=== PATIENT | male | born 1985 | race Caucasian/White ===

== ENCOUNTER 2020-11-09 18:42 | Emergency (ER) | payer MEDICAID, SELFPAY ==
--- NOTE | 2020-11-09 18:47 | ED.EXTPRO ---
HPI - Extremity Problem General Chief complaint: Extremity Injury, Lower Stated complaint: L leg swelling Source: patient and RN notes reviewed Mode of arrival: ambulatory Limitations: no limitations History of Present Illness Complaint: extremity swelling (and redness) Onset (ago): hour(s) (12) Pain Consistency: constant Location: left and lower extremity Severity scale (1-10): 3 Quality: aching and dull Radiation: none Relieving factors: nothing Exacerbating factors: weight bearing and walking Associated symptoms: denies other symptoms Related Data Home Medications Medication Instructions Recorded Confirmed duloxetine [Cymbalta] 30 mg PO DAILY 11/09/20 11/09/20 mirtazapine [Remeron] 30 mg PO DAILY 11/09/20 11/09/20 Allergies Allergy/AdvReac Type Severity Reaction Status Date / Time ketorolac [Toradol] Allergy Intermediate Unknown Verified 11/09/20 18:58 codeine [Tylenol-Codeine #3] AdvReac Mild Nausea Verified 11/09/20 19:08 Review of Systems Review of Systems: All systems reviewed & are unremarkable except as noted in HPI and below Constitutional: Constitutional: Denies chills and Denies fever(s) Cardiovascular: Cardiovascular: Denies chest pain Respiratory: Respiratory: Denies dyspnea Gastrointestinal: Gastrointestinal: Denies diarrhea, Reports nausea and Denies vomiting PMFSH Past Medical History Medical History (Updated 11/09/20 @ 19:44 by Angel Beck MD) Depression Surgical History Surgical History (Updated 11/09/20 @ 18:53 by Angel Beck MD) No pertinent past surgical history Social History Social History (Updated 11/09/20 @ 18:54 by Angel Beck MD) Smoking status: Current every day smoker Alcohol intake: never Substance use: never Exam Const: General: healthy appearing and no acute distress Nutritional Appearance: well nourished and thin Orientation/consciousness: patient oriented x3 HENMT: Head: normal to inspection Ears: external ears normal Eyes: Conjunctivae: conjunctivae normal Pupils: Equal, round and reactive pupils present EOM: EOMs intact bilaterally Neck: Neck: normal visual inspection Resp: Effort & Inspection: normal respiratory effort Auscultation: clear to auscultation bilaterally Cardio: Rate: regular rate Rhythm: regular rhythm GI: GI Palp: Yes Soft to palpation, No Tenderness to palpation present (GI), No Guarding due to palpation present (GI) and No Rebound tenderness present Auscultation: normal bowel sounds Back/Spine/Pelvis: Cervical Spine: cervical ROM normal Thoracic/Lumbar Spine: thoraco-lumbar ROM normal Skin: General skin exam: normal color and erythema (with tenderness and warmth LLE below the knee) Trauma: abrasion (Left lower leg superficial) Neuro: General: patient oriented x3, moves all extremities, no meningeal signs and no focal motor deficits Speech: normal speech Gait exam (Neuro): Normal gait present Extrem: General: normal to inspection and no clubbing, cyanosis or edema Psych: Appearance: grossly normal and well kempt Mental Status: mental status grossly normal Affect: normal affect Attitude: cooperative Thought content: Yes Normal thought content present MDM - Extremity (Nontraumatic) Lab Data Attestation: I reviewed the patient's lab results. Discharge Plan Discharge Clinical Impression: Cellulitis Qualifiers: Site of cellulitis: extremity Site of cellulitis of extremity: lower extremity Laterality: left Qualified Code(s): L03.116 - Cellulitis of left lower limb Patient Disposition: Home, Self-Care Condition: Stable Instructions: Antibiotic Form, Cellulitis (ED) Additional Instructions: follow-up with your primary care physician in 4 to 5 days to recheck improvement in infection. Prescriptions: New clindamycin HCl 300 mg capsule 300 mg PO Q8H 10 Days Qty: 30 RF: 0 No Action mirtazapine [Remeron] 30 mg Tablet 30 mg PO DAILY RF: 0 duloxetine [Cymbalta] 30 mg Ca
[2020-11-09 18:50] VITALS: BP 124/90; PULSE 98; RESP 16; TEMP 37.1; O2SAT 99
[2020-11-09] MEDS: ACETAMINOPHEN 500 MG TABLET 1000 MG PO (19:10)
[2020-11-09 19:21] LABS: Basophils Absolute Auto 0.03 K/mm3 (0.00-0.10); Basophils Percent Auto 0.4 % (0.0-1.0); Eosinophils Absolute Auto 0.09 K/mm3 (0.02-0.50); Eosinophils Percent Auto 1.2 % (1.0-6.0); Hemoglobin 13.3 g/dL (14.0-18.0); Immature Granulocyte Absolute 0.03 K/mm3 (0.00-0.00); Immature Granulocyte Percent A 0.4 % (0.0-0.0); Lymphocytes Absolute Auto 1.16 K/mm3 (1.10-4.50); Lymphocytes Percent Auto 15.1 % (18.0-42.0); Mean Corpuscular HGB Conc 35.9 g/dL (32.0-36.0); Mean Corpuscular Hemoglobin 31.4 pg (27.0-31.0); Mean Corpuscular Volume 87.3 fL (78.0-102.0); Monocytes Absolute Auto 0.79 K/mm3 (0.10-0.90); Monocytes Percent Auto 10.3 % (2.0-11.0); Neutrophils Absolute Auto 5.6 K/mm3 (1.7-7.2); Neutrophils Percent Auto 72.6 % (50.0-70.0); Platelet Count Result 343 K/mm3 (150-420); Red Blood Count 4.24 M/mm3 (4.70-6.10); Red Cell Distribution Width 12.5 % (11.6-14.4); White Blood Count 7.7 K/mm3 (4.8-10.8)
[2020-11-09 19:30] LABS: CRP 9.9 mg/dL (0.0-0.9)
[2020-11-09 19:30] LABS: Anion Gap 14 mmol/L (8-16); Blood Urea Nitrogen 22 mg/dL (7-18); Calcium 9.1 mg/dL (8.5-10.1); Carbon Dioxide 27 mmol/L (21-32); Chloride 99 mmol/L (98-108); Estimated CRCL calculation 86 ml/min; Estimated Glomerular Filt Rate > 60; Glucose 110 mg/dL (70-99); Osmolality Calculated 294 mOsm/kg (285-295); Potassium 3.1 mmol/L (3.5-5.1); Sodium 140 mmol/L (136-145)
[2020-11-09] MEDS: CLINDAMYCIN HCL 150 MG CAP 300 MG PO (19:49)
[2020-11-09 19:50] VITALS: RESP 16; O2SAT 99
== END 2020-11-09 19:52 | disposition home or self-care (01) ==
PROVIDERS: Emergency Provider Emergency Medicine
DX: L03.116 Cellulitis of left lower limb (principal)
CPT/HCPCS: 36415; 80048; 83605; 85025; 86140; 87040; 99283; A9270

== ENCOUNTER 2022-06-14 15:00 | Emergency (ER) | payer OTHER, SELFPAY ==
--- NOTE | ~2022-06-14 | XR_ITS ---
EXAM: XR ankle RT min 3V, XR foot LT min 3V, XR foot RT min 3V, XR ankle LT min 3V DATE: 06/14/2022 15:53 (accession [id number]), 06/14/2022 15:54 (accession [id number]), 06/14 15:54 (accession [id number]), 06/14/2022 15:54 (accession [id number]) HISTORY: GENERALIZED PAIN THROUGHOUT X 2 DAYS NO INJURY . COMPARISON: None available. FINDINGS: Normal mineralization. No fracture or dislocation. No lytic or blastic lesion. Mild scatte red degenerative changes. No erosion or periosteal change. Soft tissues within normal limits. IMPRESSION: No acute osseous finding in the bilateral ankles or feet. Reviewed, dictated and finalized at [facility] [employer]. 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 IMPRESSION: No acute osseous finding in the bilateral ankles or feet. IMPRESSION: No acute osseous finding in the bilateral ankles or feet.
[2022-06-14 15:00] VITALS: BP 141/99; PULSE 113; RESP 18; TEMP 36.9; O2SAT 100
--- NOTE | 2022-06-14 15:20 | ED.GENADULT ---
HPI - General Adult General Chief complaint: Extremity Injury, Lower Stated complaint: pain in feet Time Seen by Provider: 06/14/22 15:17 Source: patient Mode of arrival: ambulatory Limitations: no limitations History of Present Illness HPI narrative: 36-year-old white male complains of pain in his feet and legs gradually worse over the last week. Says is worse when he is walking. He has taken some Tylenol yesterday it did help he is taking gabapentin it did not help. He saw his psychiatrist 4 days ago but did mention is pain in his feet. He was admitted to the hospital for suicidal thoughts a week or 2 ago. He is placed on gabapentin he does not know why. This was discontinued by his doctor. never had this problem before he has a history of anxiety and depression. Related Data Home Medications Medication Instructions Recorded Confirmed citalopram 40 mg tablet 40 mg PO DAILY 06/14/22 06/14/22 clonazepam 1 mg tablet 1 mg PO BID 06/14/22 06/14/22 duloxetine 30 mg capsule,delayed 120 mg PO DAILY 06/14/22 06/14/22 release mirtazapine 30 mg tablet (Remeron) 15 mg PO QHS 06/14/22 06/14/22 olanzapine 10 mg tablet (Zyprexa) 20 mg PO HS 06/14/22 06/14/22 propranolol 20 mg tablet 60 mg PO DAILY 06/14/22 06/14/22 Allergies Allergy/AdvReac Type Severity Reaction Status Date / Time ketorolac [Toradol] Allergy Intermediate Unknown Verified 06/14/22 15:09 codeine [Tylenol-Codeine #3] AdvReac Mild Nausea Verified 06/14/22 15:09 Review of Systems Constitutional: Constitutional: Denies chills, Denies fatigue, Denies fever(s) and Denies weakness Eyes: Eyes: Reports no additional eye complaints ENT: Reports system reviewed and no additional complaints, except as documented Cardiovascular: Cardiovascular: Reports no additional cardiovascular complaints Respiratory: Respiratory: Reports no additional respiratory complaints Gastrointestinal: Gastrointestinal: Reports no additional gastrointestinal complaints Genitourinary: Genitourinary: Reports no additional male genitourinary complaints Musculoskeletal: Musculoskeletal: Reports as per HPI, Denies back pain, Denies myalgias, Reports arthralgias, Denies joint swelling and Denies muscle cramps Integumentary/Breasts: Skin/Breast: Denies pruritus and Denies erythema Neurologic: Reports system reviewed and no additional complaints, except as documented, Denies confusion, Denies dizziness, Denies syncope, Denies numbness and Denies weakness Psychiatric: Psychiatric: Reports no additional psychiatric complaints [facility] Past Medical History Medical History Depression Surgical History Surgical History No pertinent past surgical history Social History Social History Smoking packs per day: 0.5 Smoking cigarettes per day: 10.0 Smoking status: Current every day smoker Alcohol intake: never Substance use: never Exam Narrative: White male does not appear in any distress head is normocephalic atraumatic. Eyes conjunctiva pink sclera nonicteric oropharynx is clear with moist mucous membranes neck is supple nontender back is nontender. Lungs are clear heart is regular rate rhythm without murmurs gallops or rubs. Abdomen is soft nontender no hepatosplenomegaly or masses no CVA tenderness. Extremities no signs clubbing or edema. His neurological motor and sensory are normal lower extremities DP and PT +2 equal bilateral. He has got scaly fungal infection on his feet other than this there is no abnormalities. He has no swelling. He has full range of motion is toes and ankles. Mild diffuse tenderness. Normal above the ankles. Affect is normal. Course Vital Signs Vital signs: Vital Signs Temperature 36.9 C 06/14/22 15:00 Pulse Rate 113 H 06/14/22 15:00 Respiratory Rate 18 06/14/22 15:00 Blood Press
[2022-06-14 16:04] LABS: Hematocrit 43.7 % (40.0-54.0); Hemoglobin 14.6 g/dL (14.0-18.0); Mean Corpuscular HGB Conc 33.4 g/dL (32.0-36.0); Mean Corpuscular Hemoglobin 30.7 pg (27.0-31.0); Mean Corpuscular Volume 91.8 fL (78.0-102.0); Mean Platelet Volume 8.9 fl (8.7-11.0); Platelet Count Result 345 K/mm3 (150-420); Red Blood Count 4.76 M/mm3 (4.70-6.10); Red Cell Distribution Width 13.3 % (11.6-14.4); White Blood Count 11.2 K/mm3 (4.8-10.8)
[2022-06-14] MEDS: ACETAMINOPHEN 500 MG TABLET 1000 MG PO (16:04)
[2022-06-14 16:08] LABS: Alanine Aminotransferase 151 U/L (16-63); Albumin Level 3.6 g/dL (3.4-5.0); Alkaline Phosphatase 98 U/L (46-116); Anion Gap 7 mmol/L (8-16); Aspartate Amino Transferase 51 U/L (15-37); Bilirubin,Total 0.2 mg/dL (0.00-1.00); Blood Urea Nitrogen 15 mg/dL (7-18); Carbon Dioxide 30 mmol/L (21-32); Chloride 101 mmol/L (98-108); Creatine Kinase 47 U/L (39-308); Estimated CRCL calculation 107 ml/min; Estimated Glomerular Filt Rate > 60; Glucose 96 mg/dL (70-99); Osmolality Calculated 286 mOsm/kg (285-295); Potassium 3.8 mmol/L (3.5-5.1); Sodium 138 mmol/L (136-145); Total Protein 7.5 g/dL (6.4-8.2)
--- NOTE | 2022-06-14 16:11 | PC.NURSE ---
pt is lying on stretcher awaiting results at this time. nad noted. medication administered as requested. will continue to monitor.
[2022-06-14 16:13] LABS: CRP < 0.5 mg/dL (0.0-0.9)
[2022-06-14 16:15] LABS: D Dimer 0.19 mg/L (0.19-0.50)
[2022-06-14 17:02] LABS: Erythrocyte Sedimentation Rate 13 mm/hr (0-15)
[2022-06-14 17:22] VITALS: BP 124/73; PULSE 83; RESP 16; O2SAT 97
== END 2022-06-14 17:20 | disposition home or self-care (01) ==
PROVIDERS: Emergency Provider Emergency Medicine; PCP Family Medicine
DX: G62.9 Polyneuropathy, unspecified (principal); B35.3 Tinea pedis; F32.A Depression, unspecified; F17.210 Nicotine dependence, cigarettes, uncomplicated
CPT/HCPCS: 36415; 73610; 73630; 80053; 82550; 85027; 85380; 85652; 86140; 99284

== ENCOUNTER 2022-12-01 14:07 | Outpatient (CLI) | payer OTHER, SELFPAY ==
[2022-12-01 14:36] LABS: Basophils Absolute Auto 0.08 K/mm3 (0.00-0.10); Basophils Percent Auto 0.8 % (0.0-1.0); Eosinophils Absolute Auto 0.07 K/mm3 (0.02-0.50); Eosinophils Percent Auto 0.7 % (1.0-6.0); Hematocrit 46.2 % (40.0-54.0); Hemoglobin 15.5 g/dL (14.0-18.0); Immature Granulocyte Absolute 0.05 K/mm3 (0.00-0.00); Immature Granulocyte Percent A 0.5 % (0.0-0.0); Lymphocytes Absolute Auto 2.45 K/mm3 (1.10-4.50); Lymphocytes Percent Auto 25.6 % (18.0-42.0); Mean Corpuscular HGB Conc 33.5 g/dL (32.0-36.0); Mean Corpuscular Hemoglobin 30.2 pg (27.0-31.0); Mean Corpuscular Volume 90.1 fL (78.0-102.0); Mean Platelet Volume 8.6 fl (8.7-11.0); Monocytes Percent Auto 6.3 % (2.0-11.0); Neutrophils Absolute Auto 6.3 K/mm3 (1.7-7.2); Neutrophils Percent Auto 66.1 % (50.0-70.0); Platelet Count Result 321 K/mm3 (150-420); Red Blood Count 5.13 M/mm3 (4.70-6.10); Red Cell Distribution Width 13.1 % (11.6-14.4); White Blood Count 9.6 K/mm3 (4.8-10.8)
[2022-12-01 14:45] LABS: Hemoglobin A1C 4.9 % (<5.7)
[2022-12-01 15:22] LABS: Alanine Aminotransferase 18 U/L (16-63); Albumin Level 4.1 g/dL (3.4-5.0); Alkaline Phosphatase 78 U/L (46-116); Anion Gap 10 mmol/L (8-16); Aspartate Amino Transferase 14 U/L (15-37); Bilirubin,Total 0.3 mg/dL (0.00-1.00); Blood Urea Nitrogen 18 mg/dL (7-18); Calcium 9.6 mg/dL (8.5-10.1); Carbon Dioxide 30 mmol/L (21-32); Chloride 100 mmol/L (98-108); Cholesterol 192 mg/dL (0-200); Estimated Glomerular Filt Rate > 60; Glucose 87 mg/dL (70-99); HDL Direct 44 mg/dL (40-60); LDL Cholesterol Calculated 87 mg/dL (<130); Osmolality Calculated 290 mOsm/kg (285-295); Sodium 140 mmol/L (136-145); Total Protein 7.8 g/dL (6.4-8.2); Triglycerides 304 mg/dL (0-150)
== END 2022-12-01 14:08 | disposition home or self-care (01) ==
DX: F33.1 Major depressive disorder, recurrent, moderate (principal); Z79.899 Other long term (current) drug therapy
CPT/HCPCS: 36415; 80053; 80061; 83036; 85025

== ENCOUNTER 2023-07-09 05:40 | Emergency (ER) | payer OTHER, SELFPAY ==
[2023-07-09] VITALS (14 sets, daily range): BP systolic 105–125; BP diastolic 72–97; PULSE 67–78; RESP 10–23; TEMP 36.4–36.8; O2SAT 99–100
--- NOTE | ~2023-07-09 | XR_ITS ---
Portable chest x-ray Comparison: 03/19/2018 Clinical History: Chest pain Findings: Lungs are clear, without focal consolidation or pleural effusion. Cardiomediastinal silho uette is stable. Bones and soft tissues are unremarkable. Impression: Normal chest. Reviewed, dictated and finalized at [facility]. Impression: Normal chest.
--- NOTE | 2023-07-09 05:44 | ECG_ITS ---
Measurements Intervals [place] Rate: 80 P: 75 TN: 122 QRS: 91 QRSD: 109 T: 73 QT: 397 QTc: 460 Interpretive Statements SINUS RHYTHM RIGHT AXIS DEVIATION INCOMPLETE RIGHT BUNDLE BRANCH BLOCK BASELINE ARTIFACT- I, II, III, AVR, AVL, V1-V2 BORDERLINE ECG NO PREVIOUS ECG AVAILABLE FOR COMPARISON Electronically Signed On 07-09-2023 6:40:24 CDT by Andrew Cade D.O.
--- NOTE | 2023-07-09 05:54 | ED.PSYCH ---
HPI - Psych General Chief Complaint: Psychiatric Symptoms <Guilherme Granados MD - Last Filed: 07/09/23 06:53> Stated Complaint: shortness of breath <Guilherme Granados MD - Last Filed: 07/09/23 06:53> Time Seen by Provider: 07/09/23 05:53 <Guilherme Granados MD - Last Filed: 07/09/23 06:53> Source: patient <Guilherme Granados MD - Last Filed: 07/09/23 06:53> Mode of arrival: ambulatory <Guilherme Granados MD - Last Filed: 07/09/23 06:53> History of Present Illness HPI Narrative: 37-year-old male smoker prior history of drug use, depression presents to the ER with acute onset -- left-sided chest pain. No radiation of the pain. No nausea / vomiting. -- Shortness of breath. The patient is saturating 100% on room. -- Depression with suicidal ideation. He wants to cut himself. Was admitted recently to a psychiatric facility in [place] depression with suicidal ideation. patient was picked up by the police. He was knocking on doors asking them to call ambulance for his suicidal ideation. -- patient is homicidal. <Guilherme Granados MD - Last Filed: 07/09/23 06:53> MD complaint: suicidal ideation and feels depressed <Guilherme Granados MD - Last Filed: 07/09/23 06:53> Onset (ago): day(s) ( One day) <Guilherme Granados MD - Last Filed: 07/09/23 06:53> Duration: constant <Guilherme Granados MD - Last Filed: 07/09/23 06:53> History of same: Yes <Guilherme Granados MD - Last Filed: 07/09/23 06:53> Relieving factors: none <Guilherme Granados MD - Last Filed: 07/09/23 06:53> Exacerbating factors: none <Guilherme Granados MD - Last Filed: 07/09/23 06:53> Context: recent alcohol abuse <Guilherme Granados MD - Last Filed: 07/09/23 06:53> Associated psychiatric symptoms: depression, suicidal ideation and homicidal ideation <Guilherme Granados MD - Last Filed: 07/09/23 06:53> Associated symptoms: denies other symptoms, shortness of breath and other ( Chest pain) <Guilherme Granados MD - Last Filed: 07/09/23 06:53> Treatments prior to arrival: none <Guilherme Granados MD - Last Filed: 07/09/23 06:53> If self harm: admits thoughts of self harm <Guilherme Granados MD - Last Filed: 07/09/23 06:53> Related Data Home Medications: Home Medications Medication Instructions Recorded Confirmed citalopram 40 mg tablet (Celexa) 40 mg PO DAILY 06/14/22 07/09/23 clonazepam 1 mg tablet (Klonopin) 1 mg PO BID 06/14/22 07/09/23 duloxetine 30 mg capsule,delayed 120 mg PO DAILY 06/14/22 07/09/23 release (Cymbalta) propranolol 20 mg tablet 60 mg PO DAILY 06/14/22 07/09/23 quetiapine 200 mg tablet mg 07/09/23 <Guilherme Granados MD - Last Filed: 07/09/23 06:53> Allergies/Adverse Reactions: Allergies Allergy/AdvReac Type Severity Reaction Status Date / Time ketorolac [Toradol] Allergy Intermediate Unknown Verified 06/14/22 15:09 erythromycin base Allergy Unknown Verified 07/09/23 07:02 codeine [Tylenol-Codeine #3] AdvReac Mild Nausea Verified 06/14/22 15:09 <Guilherme Granados MD - Last Filed: 07/09/23 06:53> Review of Systems Review of Systems: All systems reviewed & are unremarkable except as noted in HPI and below <Guilherme Granados MD - Last Filed: 07/09/23 06:53> Constitutional: Constitutional: Reports as per HPI and Reports no additional constitutional complaints <Guilherme Granados MD - Last Filed: 07/09/23 06:53> Eyes: Eyes: Reports as per HPI and Reports no additional eye complaints <Guilherme Granados MD - Last Filed: 07/09/23 06:53> ENT: Reports system reviewed and no additional complaints, except as documented and Reports as per HPI <Guilherme Granados MD - Last Filed: 07/09/23 06:53> Cardiovascular: Cardiovascular: Reports as per HPI, Reports no additional cardiovascular complaints and Reports chest pain <Guilherme Granados MD - Last Filed: 07/09/23 06:53> Respiratory: Respiratory: Reports as per
[2023-07-09 06:28] LABS: Appearance Urine Clear (Clear); Bilirubin Urine Negative (Negative); Blood Urine Negative (Negative); Color Urine Yellow (Yellow); Glucose Urine UA Negative (Negative); Ketones Urine Negative (Negative); Leukocyte Esterase Ur Negative LEU/UL (Negative); Nitrate Urine Negative (Negative); Protein Urine Trace (Negative); Specific Grav Ur >= 1.030 (1.010-1.020); Urobilinogen Urine 0.2 mg/dL (0.2-1.0)
--- NOTE | 2023-07-09 06:36 | PC.NURSE ---
phlebotomy at bedside for patient blood draw however patient refusing initially, telling phlebotomy someone already travis his blood. Patient argumentative with RN about blood being drawn from his IV in place. RN provided patient education as to why blood work is unable to be drawn from his current IV line. Eventually patient agreed to have phlebotomy draw his blood.
[2023-07-09 06:40] LABS: Basophils Absolute Auto 0.06 K/mm3 (0.00-0.10); Basophils Percent Auto 0.5 % (0.0-1.0); Eosinophils Absolute Auto 0.14 K/mm3 (0.02-0.50); Eosinophils Percent Auto 1.2 % (1.0-6.0); Hemoglobin 13.8 g/dL (14.0-18.0); Immature Granulocyte Absolute 0.03 K/mm3 (0.00-0.00); Immature Granulocyte Percent A 0.3 % (0.0-0.0); Lymphocytes Absolute Auto 1.91 K/mm3 (1.10-4.50); Lymphocytes Percent Auto 16.9 % (18.0-42.0); Mean Corpuscular HGB Conc 32.9 g/dL (32-36); Mean Corpuscular Hemoglobin 30.1 pg (27.0-31.0); Mean Corpuscular Volume 91.7 fL (78.0-102.0); Mean Platelet Volume 8.1 fl (8.7-11.0); Monocytes Absolute Auto 0.81 K/mm3 (0.10-0.90); Monocytes Percent Auto 7.2 % (2.0-11.0); Neutrophils Absolute Auto 8.37 K/mm3 (1.70-7.20); Neutrophils Percent Auto 73.9 % (50.0-70.0); Platelet Count Result 345 K/mm3 (150-420); Red Blood Count 4.58 M/mm3 (4.70-6.10); White Blood Count 11.3 K/mm3 (4.8-10.8)
--- NOTE | 2023-07-09 06:43 | PC.NURSE ---
lights dimmed for patient comfort/request. RN monitoring, safety assistant at bedside.
[2023-07-09 06:52] LABS: Add Urine Microscopic? YES; Bacteria Urine Rare /hpf; Mucus Urine Moderate /lpf; Other Sediment Urine Spermatazoa /hpf; RBC Urine None seen /hpf (0-2); WBC Urine None seen /hpf (0-3)
--- NOTE | 2023-07-09 07:06 | PC.NURSE ---
[facility] KEYANNA Mohan for continuity of care. patient awaiting results, ED staff awaiting medical clearance prior to calling [facility] for evaluation. clinical research specialist remains at bedside. patient remains on cardiac cath tech until medically cleared.
[2023-07-09 07:07] LABS: Influenza A QL RT-PCR Negative (Negative); Influenza B QL RT-PCR Negative (Negative); RSV RNA, RT-PCR Negative (Negative); SARS-CoV-2 RNA PCR Negative (Negative)
[2023-07-09 07:09] LABS: Acetaminophen < 2 ug/mL (10-30); Alanine Aminotransferase 16 U/L (16-63); Albumin Level 4.3 g/dL (3.4-5.0); Alkaline Phosphatase 80 U/L (46-116); Anion Gap 11 mmol/L (8-16); Aspartate Amino Transferase 12 U/L (15-37); Bilirubin,Total 0.5 mg/dL (0.00-1.00); Blood Urea Nitrogen 30 mg/dL (7-18); Calcium 9.5 mg/dL (8.5-10.1); Carbon Dioxide 30 mmol/L (21-32); Chloride 98 mmol/L (98-108); Estimated CRCL calculation 92 ml/min; Estimated Glomerular Filt Rate > 60; Glucose 94 mg/dL (70-99); NT Pro B Type Natriuretic Pept 16 pg/mL (0-125); Osmolality Calculated 294 mOsm/kg (285-295); Potassium 3.6 mmol/L (3.5-5.1); Sodium 139 mmol/L (136-145); Total Protein 8.2 g/dL (6.4-8.2)
[2023-07-09 07:10] LABS: Salicylate 4.3 mg/dL (2.8-20.0)
[2023-07-09 07:11] LABS: Ethanol < 3 mg/dL (0-6); Troponin I < 4.0 ng/L (0.00-60.4)
[2023-07-09 07:12] LABS: Thyroid Stimulating Hormone 2.01 uIU/mL (0.36-3.74)
[2023-07-09 07:14] LABS: Amphetamine Screen Urine Positive (Negative); Barbiturate Screen Urine Negative (Negative); Benzodiazepines Screen Urine Negative (Negative); Cannabinoid Screen Urine Positive (Negative); Cocaine Screen Urine Negative (Negative); Methadone Screen Urine Negative (Negative); Opiate Screen Urine Negative (Negative); Phencyclidine Screen Urine Negative (Negative)
[2023-07-09] MEDS: ALPRAZolam (*CRX) 0.5 MG TABLET PO (07:23)
--- NOTE | 2023-07-09 07:57 | PC.NURSE ---
0715 pt medically cleared and moved to room 5 IV D/C'D SUICIDAL PRECAUTIONS CONTINUED SITTER AT DOOR BREAKFAST ORDERED [facility] MESSAGED LEFT AND WAITING CALL BACK
== END 2023-07-09 12:13 ==
PROVIDERS: Internal Medicine Critical Care Medicine; Emergency Provider Emergency Medicine
DX: F32.A Depression, unspecified (principal); R45.850 Homicidal ideations; R45.851 Suicidal ideations; F17.210 Nicotine dependence, cigarettes, uncomplicated; Z20.822 Contact with and (suspected) exposure to COVID-19
CPT/HCPCS: 36415; 71045; 80053; 80307; 81001; 83880; 84443; 84484; 85025; 87637; 93005; 99285; A9270

== ENCOUNTER 2024-09-01 14:02 | Emergency (ER) | payer OTHER, SELFPAY ==
[2024-09-01] VITALS (35 sets, daily range): BP systolic 97–137; BP diastolic 60–104; PULSE 63–112; RESP 10–27; TEMP 36.8; O2SAT 98–100
--- NOTE | ~2024-09-01 | XR_ITS ---
EXAMINATION: XR ankle RT min 3V, XR foot RT min 3V DATE: 09/01/2024 14:37 INDICATION: Right foot and ankle pain after jumping from a shunt. TECHNIQUE: 1. Anteroposterior, mortise, additional oblique and lateral view of the right ankle were obtained. 2. Dorsoplantar, two oblique and lateral views of the right foot were obtained. COMPARISON: None. FINDINGS: There is flattening of Boehler's angle with a joint depression type calcaneal. There is mild displace ment with 5 mm separation of the plantar margin of the fracture. No other fractures identified. 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 No ank le joint effusion. Soft tissue swelling about the right foot and ankle most prominent at the dorsolat eral hindfoot. IMPRESSION: 1. Mildly displaced joint depression type fracture of the calcaneus with flattening of Boehler's angl e. Reviewed, dictated and finalized at location A. IMPRESSION: 1. Mildly displaced joint depression type fracture of the calcaneus with flatte jesus of Boehler's angle.
--- NOTE | ~2024-09-01 | XR_ITS ---
EXAMINATION: XR chest 1V portable 09/01/2024 14:37 INDICATION: Shortness of breath PROCEDURE: AP portable chest COMPARISON: 01/17/2011 FINDINGS: The lungs are clear. The cardiomediastinal silhouette is within normal limits. There are no pleural effusions. There is no pneumothorax suspected. IMPRESSION: 1: NO ACUTE CARDIOPULMONARY DISEASE. Reviewed, dictated and finalized at location A.
--- NOTE | ~2024-09-01 | CT_ITS ---
CTA chest PE protocol Ordering provider: Tarik Zelaya MD History: 38 years Male with . shortness of breath with elevated D-dimer . Comparison: None. Technique: CT angiogram chest was performed following timed intravenous injection of contrast. Thin s lice axial images and reformatted coronal images were obtained. Three dimensional reformatted images of the chest were also obtained using a [employer] workstation. . Automated exposure control and iterati ve reconstruction technique were employed. The dose-length product was 265.86 mGy-cm. 100 mL Omnipaqu e 350 was given IV. Findings: PULMONARY ARTERIES: No pulmonary embolus. VISUALIZED THORACIC INLET: Normal. MEDIASTINUM: Aorta/coronary arteries: The thoracic aorta is normal. Heart/other: The heart is not enlarged. Lymph nodes: No mediastinal or hilar adenopathy. LUNGS: No pulmonary nodules or masses. No infiltrates or effusions. No pneumothorax. Calcified granulomas ar e seen bilaterally. VISUALIZED UPPER ABDOMEN: Left adrenal adenoma measuring 2 cm. Clinical correlation and if warranted MRI is advised. Otherwise, the visualized upper abdomen is normal. MUSCULOSKELETAL: Soft tissues: The superficial soft tissues are normal. Bones: Normal spine. IMPRESSION: 1. No pulmonary embolism. 2. No acute cardiopulmonary pathology. 3. Left adrenal adenoma. Clinical correlation and if warranted dynamic CT or MRI is advised. Reviewed, dictated and finalized at location A. IMPRESSION: 1. No pulmonary embolism. 2. No acute cardiopulmonary pathology. 3. Left adrenal adenoma. Clinical correlation and if warranted dynamic CT or M RI is advised.
--- OUTSIDE RECORDS SUMMARY | 2024-09-01 14:04 | XMS_ITS | Clinical Summary ---
Author Organization [facility] Address [address] [place] [address] Care Team Providers Care Street Photographer Name Role Phone Solitario Trujillo MD Primary Care Provider [phone] Source Comments [facility],non-owned Affiliates and Associated Physician Practices is amultiple site organization consisting of ambulatory clinics and hospital sitesin [place], [place], [place] and [place]. This disclosure is being madepursuant to the Care Everywhere program and may not contain all information available regarding this patient. Last updated 18.[facility] Allergies Active Allergy Reactions Criticality Noted Date Comments Erythromycin Rash Medium 01/27/2021 Ketorolac Rash Medium 01/27/2021 Medications * This document contains information received from the source organization and may not represent a complete record from that organization. * Be aware that medications may not be up to date on this document. Alwaysverify current medications with the patient. clonazePAM (KlonoPIN) 1 MG tabletIndication s:Anxiety Take 1 (one) tablet by mouth 2 times daily Reasons: Feeling Anxious 10 tablet 4 Active nicotine (Nicoderm CQ) 14 MG/24HR patchIndications :Nicotine dependence, cigarettes, with unspecified nicotine-induced disorders APPLY 1 PATCH TO THE SKIN ONCE DAILY FOR NICOTINE ADDICTION. REMOVE OLD PATCH BEFORE APPLYING A NEW ONE. 30 patch 4 Active hydrOXYzine HCl (Atarax) 50 MG tablet TAKE ONE TABLET BY MOUTH EVERY 6 HOURS NEEDED FOR FEELING ANXIOUS 60 tablet 4 Active traZODone (Desyrel) 50 MG tablet TAKE ONE TABLET BY MOUTH NIGHTLY NEEDED FOR TROUBLE SLEEPING 30 tablet 4 Active DULoxetine (Cymbalta) 60 MG capsule TAKE ONE CAPSULE BY MOUTH ONCE DAILY FOR GENERALIZED ANXIETY & MAJOR DEPRESSIVE DISORDER 30 capsule 4 Active QUEtiapine (SEROquel) 200 MG tablet TAKE TWO TABLETS BY MOUTH AT BEDTIME FOR GENERALIZED ANXIETY & MAJOR DEPRESSIVE DISORDER 60 tablet 4 Active DULoxetine (Cymbalta) 30 MG capsule TAKE ONE CAPSULE BY MOUTH ONCE DAILY FOR GENERALIZED ANXIETY & MAJOR DEPRESSIVE DISORDER 30 capsule 4 Active OXcarbazepine (Trileptal) 600 MG tablet TAKE ONE TABLET BY MOUTH 2 TIMES A DAY FOR MOOD DISORDER 30 tablet 4 Active Active Problems Problem Noted Date Diagnosed Date 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 08/04/2023 Cluster B personality disorder 02/21/2021 Intermittent explosive disorder 02/21/2021 Tobacco use disorder 02/16/2021 Major depressive disorder, recurrent 02/16/2021 Moderate sedative, hypnotic, or anxiolytic use d isorder 02/16/2021 Medication monitoring encounter 02/15/2021 Methamphetamine use disorder, severe 01/28/2021 Cannabis use disorder, moderate, dependence 01/18 Homelessness 01/28/2021 Nonadherence to medical treatment 01/28/2021 Self-cutting of wrist 01/27/2021 Resolved Problems Problem Noted Date Diagnosed Date Resolved Date Sedative, hypnotic or anxiol ytic use disorder, severe, dependence 02/21/2021 02/21/2021 Schizophrenia 02/15/2021 02/16/2021 Severe episode of recurrent major depressive disorder, without psychotic features 01/28/202112/2020 Social History Tobacco Use Types Packs/Day Years Used Date Smoking Tobacco: Every Day Cigarettes 0.5 24.6 Started: 01/28/2000 Smokeless Tobacco: Never Tobacco Cessation:Ready to Q uit: No; Counseling Given: Yes Comments:refused tobacco cessation referral Alcohol Use Standard Drinks/Week Comments Yes 0 (1 standard drink = 0.6 oz pur e alcohol) very little-twice per month AUDIT-C Answer Date Recorded Q1: How often do you have a drink containing alc ohol? Monthly or less 08/04/2023 Q2: How many drinks containi ng alcohol do you have on a typical day when you are drinking? Patient declined 08/04/2023 Q3: How often do you have si x or more drinks on one occasion? Patient declined 08/04/2023 Overall Financial Resource Strain (CARDIA) Answe r Date Recorded How hard is it for you to pa y for the very basics like food, housing, medical care, and heating? Patient declined 08/07/2023 PHQ-2 Answer Date Recorded PHQ2 TOTAL SCORE 6 03/27/2021 [facility] [place] [facility] - Occupational Stress Questionnaire Answer Date Recorded Do you feel stress - tense, restless, nervous, or anxious, or unable to sleep at night because your mind is troubled all the time - these days? Patient declined 08/07/2023 Hunger Vital Sign Answer Date Recorded Within the past 12 months, y ou worried that your food would run out before you got the money to buy more. Patient declined Within the past 12 months, t he food you bought just didn't last and you didn't have money to get more. Patient declined PRAPARE - Transportation Answer Date Re corded In the past 12 months, has l ack of transportation kept you from medical appointments or from getting medications? Patient declined 08/07/2023 In the past 12 months, has l ack of transportation kept you from meetings, work, or from getting things needed for daily living? Patient declined 08/07/2023 Housing Stability Vital Sign Answer Lawrence e Recorded In the last 12 months, was t here a time when you were not able to pay the mortgage or rent on time? Patient declined 08/07/19 24 Number of Places Lived in the Last Year Not on f ile 08/07/2023 In the last 12 months, was t here a time when you did not have a steady place to sleep or slept in a detention (including now)? 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 Gender Identity Not on file Sexual Orientation Not on file Occupation Industry Job Start Date Job End Date unemployed Not on file Not on file Not on file Last Filed Vital Signs Vital Sign Reading Time Taken Comments Blood Pressure 116/71 08/13/2023 8:24 PM CDT Pulse 70 08/13/2023 8:24 PM CDT Temperature 36.4 C (97.5 F) 08/13/2023 8:24 PM CDT Respiratory Rate 16 08/13/2023 8:24 PM CDT Oxygen Saturation 99% 08/13/2023 8:24 PM CDT Inhaled Oxygen Concentration - - Weight 77.7 kg (171 lb 6.4 oz) 08/13/2023 11:59 AM CDT Height 185.4 cm (6' 1 ) 08/13/2023 11:59 AM CDT Body Mass Index 22.61 08/13/2023 11:59 AM CDT Plan of Treatment Health Maintenance Due Date Last Done Comments HIV SCREENING 2000 DTAP/TDAP/TD VACCINES (1 - Tdap) 2004 HEPATITIS B VACCINE (1 of 3 - 19+ 3-dose series) 2004 PNEUMOCOCCAL VACCINE (1 of 2 - PCV) 2004 COVID-19 VACCINE (2 - 2023-2 5 season) 2023 07/11/2020 DEPRESSION SCREENING 04/20/2024 INFLUENZA VACCINE (Season Ended) 2024 ZOSTER VACCINE (1 of 2) 12/22/2035 HEPATITIS C SCREENING Completed 10/05/2018 HIB VACCINE Aged Out No longer eligi ble based on patient's age to complete this topic HPV VACCINE Aged Out No longer eligi ble based on patient's age to complete this topic MENINGOCOCCAL (Group B) VACC INE SHARED DECISION-MAKING Aged Out No longer eligibl e based on patient's age to complete this topic MENINGOCOCCAL GROUPS A/C/Y/W VACCINE Aged Out No longer eligible b ased on patient's age to complete this topic Insurance [facility] Advance Directives * Full Code (Latest Code Status on File) Date Activated Date Inactivated Comments 08/04/2023 7:51 PM 08/14/2023 10:54 AM * Full Code Date Activated Date Inactivated Comments 03/28/2021 4:41 AM 04/02/2021 2:35 PM * Full Code Date Activated Date Inactivated Comments 02/15/2021 8:14 PM 02/21/2021 12:23 PM * Full Code Date Activated Date Inactivated Comments 01/27/2021 2:44 PM 02/04/2021 2:[address] Photographer Relationship Specialty Start Date End Date Solitario Trujillo MD [id number] [place] [id number] PCP - General Psychiatry 08/04/23
--- OUTSIDE RECORDS SUMMARY | 2024-09-01 14:05 | XMS_ITS ---
Author Organization Unknown Address [address] [place], [place] [phone] Phone Care Team Providers Care Hoop Rolls Operator Name Role Phone EDGAR JACINTO Attending Unavailable NO PCP Primary Unavailable Immunization Immunization Date Status Additional Notes Code Code System COVID-19, mRNA, LNP-S, PF, 1 00 mcg/0.5mL dose or 50 mcg/0.25mL dose 07/11/2020 Completed 207 CVX Results URINALYSIS w/Microscopy/C&S if indicated - Collect Date/Time: 12/17/2023 20:20 [facility] [id number] [place], [place], [phone] LOINC: 42845-7 Test Value Unit Reference Range Code Code System Flag UR SOURCE VOIDED 55145-6 LOINC COLOR DK YELLOW YELLOW 5778-6 LOINC CLARITY SL CLOUDY CLEAR 96443-2 LOINC SPEC GRAVITY 1.020 1.000-1.030 5811-5 LOINC PH 7.0 5.0 - 6.5 5803-2 LOINC LEUK EST NEGATIVE NEGATIVE 5799-2 LOINC NITRATE NEGATIVE NEGATIVE PROTEIN TRACE NEGATIVE 5804-0 LOINC GLUCOSE NEGATIVE NEGATIVE 34985-2 LOINC KETONES 1+ NEGATIVE 88644-2 LOINC A UROBILINOGEN 0.2 NEGATIVE 5818-0 LOINC BILIRUBIN 1+ NEGATIVE 40894-1 LOINC BLOOD NEGATIVE NEGATIVE 34786-5 LOINC WBC 0-2 0 - 2 61684-7 LOINC RBC 0-2 0 - 2 20655-3 LOINC EPITHELIAL OCCASIONA RARE-FEW 88198-3 LOINC BACTERIA FEW NONE SEEN 17521-8 LOINC MUCUS MANY NONE SEEN 8247-9 LOINC A YEAST NOT PRESENT NOT PRESENT 87278-2 LOINC CASTS NONE SEEN 49460-4 LOINC CRYSTALS NONE SEEN 93324-3 LOINC CULTURE? NO 8251-1 LOINC DIAGNOSIS N/A URINE DRUG SCREEN 12 PANEL R APID - Collect Date/Time: 12/17/2023 20:20 [facility] [id number] [address] [place], [place], [phone] LOINC: Test Value Unit Reference Range Code Code System Flag THC POSITIVE A PCP NEGATIVE COCAINE NEGATIVE 08009-8 LOINC METHAMPHETAMINES POSITIVE A OPIATES NEGATIVE AMPHETAMINES POSITIVE 70610-6 LOINC A BENZO POSITIVE 18965-2 LOINC A TCA NEGATIVE METHADONE NEGATIVE BARBITUATES NEGATIVE OXYCODONE NEGATIVE OD [id number] YLATE-ETOH - Collect Date/Time: 12/17/2023 18:20 [facility] [id number] [place] [address], [phone] LOINC: Test Value Unit Reference Range Code Code System Flag ACETAMINOPHEN < 10 ug/dL L=0 H=10 3298-7 LOINC SALICYLATE < 1 mg/dL L=0 H=5 4024-6 LOINC ALCOHOL < 10.00 mg/dL L=0.00 H=50.00 5643-2 LOINC TSH - Collect Date/Time: 18:20 [facility] ID: [id number] [address] [place] [address], [phone] LOINC: 19315-0 Test Value Unit Reference Range Code Code System Flag TSH. 2.710 uIU/L L=0.470 H=4.680 33559-1 LOINC CBC W/ DIFF - Collect Date/T alhaji: 12/17/2023 18:20 [facility] ID: [id number] [address] [place], [place], [phone] LOINC: 31455-8 Test Value Unit Reference Range Code Code System Flag WBC 12.1 10^3uL L=4.8 H=10.8 H RBC 4.59 10^6uL L=4.60 H=6.20 L HEMOGLOBIN 14.1 g/dL L=14.0 H=18.0 718-7 LOINC HEMATOCRIT 40.9 VOL% L=42.0 H=52.0 4544-3 LOINC L MCV 89.1 fL L=80.0 H=94.0 MCH 30.7 pg L=27.0 H=32.0 MCHC 34.5 g/dL L=32.0 H=36.0 PLATELETS 354 10^3uL L=100 H=400 87493-2 LOINC RDW 13.2 % L=11.7 H=15.5 %GRAN 70.4 % L=40.0 H=70.0 08737-5 LOINC H %LYMPH 19.3 % L=20.0 H=45.0 736-9 LOINC L %MONO 8.3 % L=2.0 H=10.0 73188-3 LOINC %EOS 1.2 % L=0.0 H=6.0 713-8 LOINC %BASO 0.6 % L=0.0 H=3.0 706-2 LOINC #NEUT 8.5 10^3uL L=1.9 H=7.6 62930-2 LOINC H #LYMPH 2.3 10^3uL L=0.9 H=4.9 70640-0 LOINC #MONO 1.0 10^3uL L=0.1 H=0.9 06083-6 LOINC H #EOS 0.1 10^3uL L=0.0 H=0.6 712-0 LOINC #BASO 0.07 10^3uL L=0.00 H=0.10 64498-2 LOINC #IM GRANS 0.0 10^3uL L=0.0 H=7.0 62158-7 LOINC %IM GRANS 0.2 % L=0.0 H=5.0 54097-5 LOINC %NRB 0.0 L=0.0 H=0.2 74629-8 LOINC #NRB 0.000 L=0.000 H=0.012 65964-7 LOINC MANUAL DIFF NOT INDICATED RBC MORPH NOT INDICATED MAGNESIUM - Collect Date/Roland e: 12/17/2023 18:20 [facility] [id number] [place], [place], [id number] LOINC: 33747-7 Test Value Unit Reference Range Code Code System Flag MAGNESIUM 2.1 mg/dL L=1.6 H=2.3 36133-2 LOINC LIVER PROFILE - Collect Date /Time: 12/17/2023 18:20 [facility] [id number] [place], [place], [phone] LOINC: 23877-3 Test Value Unit Reference Range Code Code System Flag ALT 21 U/L L=9 H=72 1742-6 LOINC AST 34 U/L L=15 H=46 1920-8 LOINC ALKALINE PHOS 78 U/L L=38 H=126 6768-6 LOINC TOTAL PROTEIN 8.0 g/L L=6.3 H=8.2 2885-2 LOINC TOTAL BILI 0.7 mg/dL L=0.2 H=1.3 1974-2 LOINC DIRECT BILI 0.0 mg/dL L=0.0 H=0.3 1967-7 LOINC INDIRECT BILI 0.40 mg/dL L=0.00 H=1.10 1970-1 LOINC ALBUMIN 4.8 G/dL L=3.5 H=5.0 175-7 LOINC BASIC METABOLIC PANEL - Serafin ect Date/Time: 12/17/2023 18:20 [facility] [id number] [place], [place], [phone] LOINC: 44759-5 Test Value Unit Reference Range Code Code System Flag FASTING UNKNOWN BUN 25 mg/dL L=7 H=20 3094-0 LOINC H CREATININE 1.00 mg/dL L=0.66 H=1.25 2160-0 LOINC GLUCOSE 105 mg/dL L=74 H=106 2345-7 LOINC CALCIUM 9.6 mg/dL L=8.3 H=10.5 99724-1 LOINC SODIUM 137 mmol/L L=132 H=144 2951-2 LOINC POTASSIUM 3.3 mmol/L L=3.5 H=5.1 2823-3 LOINC L CHLORIDE 99 mmol/L L=98 H=107 2075-0 LOINC CO2 25.0 mmol/L L=22.0 H=30.0 2028-9 LOINC ANION GAP 16 L=10 H=20 49249-2 LOINC BUN/CREAT 25.0 3097-3 LOINC AGE 37 12101-1 LOINC eGFR NON-AFR 89 ml/min eGFR AFR AMER 108 ml/min SARS ANTIGEN RAPID - Collect Date/Time: 12/17/2023 18:15 [facility] [id number] [address] [place], [place], [phone] LOINC: 36630-3 Test Value Unit Reference Range Code Code System Flag SARS ANTIGEN RAPID NEGATIVE 29929-9 LOINC SEND TO [facility]? YES ANKLE 3V RIGHT - Completed: 12/17/2023 20:06 LOINC: EXAM DESCRIPTION: ANKLE 3V RIGHT REASON FOR STUDY: Pain in right ankle and right posterior hip area. Unknown duration. Unknown if any trauma. Patient states he does not know what happened and will only answer a few questions. Duration: unknown TECHNIQUE: Three views of the right ankle COMPARISON: None available FINDINGS: BONES/JOINTS: There is no acute fracture, malalignment or osseous abnormalities. The joint spaces are normal. SOFT TISSUES: Within normal limits. IMPRESSION: Normal right ankle radiographs. THIS IS AN ELECTRONICALLY VERIFIED FINAL REPORT 12/17/2023 8:13 PM - Electronically signed by Asif Coronel M.D. KN: ARMANDO Report ID: [id number] Reading Location: [id number] HIP RT 2 OR 3 VIEWS - Comple rai: 12/17/2023 20:06 LOINC: EXAM DESCRIPTION: HIP RT 2 OR 3 VIEWS REASON FOR STUDY: Pain in right ankle and right posterior hip area. Unknown duration. Unknown if any trauma. Patient states he does not know what happened and will only answer a few questions. Duration: unknown TECHNIQUE: Two views of the right hip COMPARISON: None available FINDINGS: BONES/JOINTS: There is no acute fracture, malalignment or osseous abnormalities. The joint spaces are normal. SOFT TISSUES: Stool in the rectum. IMPRESSION: No fracture. THIS IS AN ELECTRONICALLY VERIFIED FINAL REPORT 12/17/2023 8:14 PM - Electronically signed by Asif Coronel M.D. KN: ARMANDO Report ID: [id number] Reading Location: [id number] Social History Type Status Start Date End Date Code Code Syst em Smoking History Current every day smoker 691353231 SNOMED CT Sex Male Hospital Discharge Instructions Should you have any questions prior to discharge, please contact a member of your healthcare team. If you have left the hospital and have any questions, please contact your primary care physician. Reason For Referral No Data Found Allergies and Adverse Reactions Allergy Substance Reaction Severity Start Date Concern Status Co de Code System CODEINE Vomiting (SNOMED-CT: 634368225), NAUSEA (SNOMED-CT: null), VOMITING (SNOMED-CT: null) Active 2670 RxNorm TORADOL Vomiting (SNOMED-CT: 655472847), NAUSEA (SNOMED-CT: null), VOMITING (SNOMED-CT: null) Active 54020 RxNorm Plan of Treatment No Data Found Encounters Encounter Diagnosis Start Date Code Code Sys tem Anxiety disorder, unspecified 12/17/2023 SNOMED-CT Personal Care Team Section Performer Name Performer Role Active Date Inactive Da te Imaging Narrative Notes
--- OUTSIDE RECORDS SUMMARY | 2024-09-01 14:05 | XMS_ITS ---
Author Organization Unknown Address [address] [place] [phone] Phone Care Team Providers Care Computer Designer Name Role Phone ANNABELLA MELISSA Attending Unavailable NO PCP Primary Unavailable Immunization Immunization Date Status Additional Notes Code Code System COVID-19, mRNA, LNP-S, PF, 1 00 mcg/0.5mL dose or 50 mcg/0.25mL dose 07/11/2020 Completed 207 CVX Results URINALYSIS w/Microscopy/C&S if indicated - Collect Date/Time: 05/27/2023 17:02 [facility] ID: [id number] [place], [phone] LOINC: 63156-8 Test Value Unit Reference Range Code Code System Flag UR SOURCE UNKNOWN 30394-8 LOINC COLOR YELLOW YELLOW 5778-6 LOINC CLARITY SL TURBID CLEAR 25703-4 LOINC A SPEC GRAVITY 1.025 1.000-1.030 5811-5 LOINC PH 6.0 5.0 - 6.5 5803-2 LOINC LEUK EST NEGATIVE NEGATIVE 5799-2 LOINC NITRATE NEGATIVE NEGATIVE PROTEIN NEGATIVE NEGATIVE 5804-0 LOINC GLUCOSE NEGATIVE NEGATIVE 00271-5 LOINC KETONES NEGATIVE NEGATIVE 25334-5 LOINC UROBILINOGEN 0.2 NEGATIVE 5818-0 LOINC BILIRUBIN NEGATIVE NEGATIVE 13071-8 LOINC BLOOD NEGATIVE NEGATIVE 69948-0 LOINC WBC 0-2 0 - 2 01329-3 LOINC RBC 0-2 0 - 2 09899-6 LOINC EPITHELIAL OCCASIONA RARE-FEW 83440-5 LOINC BACTERIA FEW NONE SEEN 11159-4 LOINC MUCUS MANY NONE SEEN 8247-9 LOINC A YEAST NOT PRESENT NOT PRESENT 00324-7 LOINC CASTS SEE BELOW 88963-8 LOINC CRYSTALS NONE SEEN 43531-8 LOINC CULTURE? NO 8251-1 LOINC DIAGNOSIS N/A URINE DRUG SCREEN 12 PANEL R APID - Collect Date/Time: 05/27/2023 17:02 [facility] ID: [id number] [address] [place] [address], [phone] LOINC: Test Value Unit Reference Range Code Code System Flag THC POSITIVE A PCP NEGATIVE COCAINE NEGATIVE 73822-0 LOINC METHAMPHETAMINES POSITIVE A OPIATES NEGATIVE AMPHETAMINES POSITIVE 30129-9 LOINC A BENZO POSITIVE 90639-4 LOINC A TCA NEGATIVE METHADONE NEGATIVE BARBITUATES NEGATIVE OXYCODONE NEGATIVE OD [id number] YLATE-ETOH - Collect Date/Time: 05/27/2023 15:55 [facility] ID: [id number] [address] [place] [address], [phone] LOINC: Test Value Unit Reference Range Code Code System Flag ACETAMINOPHEN < 10 ug/dL L=0 H=10 3298-7 LOINC SALICYLATE < 1 mg/dL L=0 H=5 4024-6 LOINC ALCOHOL < 10.00 mg/dL L=0.00 H=50.00 5643-2 LOINC TSH - Collect Date/Time: 10/2023 15:55 [facility] ID: [id number] [address] [place] [address], [id number] LOINC: 55539-8 Test Value Unit Reference Range Code Code System Flag TSH. 2.240 uIU/L L=0.470 H=4.680 33191-3 LOINC BASIC METABOLIC PANEL - Serafin ect Date/Time: 05/27/2023 15:55 [facility] ID: [id number] [address] [place] [address], [id number] LOINC: 82009-8 Test Value Unit Reference Range Code Code System Flag FASTING UNKNOWN BUN 26 mg/dL L=7 H=20 3094-0 LOINC H CREATININE 1.00 mg/dL L=0.66 H=1.25 2160-0 LOINC GLUCOSE 97 mg/dL L=74 H=106 2345-7 LOINC CALCIUM 9.8 mg/dL L=8.3 H=10.5 78755-9 LOINC SODIUM 139 mmol/L L=132 H=144 2951-2 LOINC POTASSIUM 3.7 mmol/L L=3.5 H=5.1 2823-3 LOINC CHLORIDE 100 mmol/L L=98 H=107 2075-0 LOINC CO2 28.0 mmol/L L=22.0 H=30.0 2028-9 LOINC ANION GAP 15 L=10 H=20 47029-1 LOINC BUN/CREAT 26.0 3097-3 LOINC AGE 37 03275-6 LOINC eGFR NON-AFR 89 ml/min eGFR AFR AMER 108 ml/min CBC W/ DIFF - Collect Date/T alhaji: 05/27/2023 15:55 [facility] ID: [id number] [address] [place], [place], [id number] LOINC: 98891-4 Test Value Unit Reference Range Code Code System Flag WBC 9.0 10^3uL L=4.8 H=10.8 RBC 4.87 10^6uL L=4.60 H=6.20 HEMOGLOBIN 14.7 g/dL L=14.0 H=18.0 718-7 LOINC HEMATOCRIT 43.6 VOL% L=42.0 H=52.0 4544-3 LOINC MCV 89.5 fL L=80.0 H=94.0 MCH 30.2 pg L=27.0 H=32.0 MCHC 33.7 g/dL L=32.0 H=36.0 PLATELETS 359 10^3uL L=100 H=400 34567-8 LOINC RDW 12.6 % L=11.7 H=15.5 %GRAN 66.2 % L=40.0 H=70.0 64000-7 LOINC %LYMPH 23.0 % L=20.0 H=45.0 736-9 LOINC %MONO 8.4 % L=2.0 H=10.0 07586-2 LOINC %EOS 1.3 % L=0.0 H=6.0 713-8 LOINC %BASO 0.8 % L=0.0 H=3.0 706-2 LOINC #NEUT 5.9 10^3uL L=1.9 H=7.6 33053-9 LOINC #LYMPH 2.1 10^3uL L=0.9 H=4.9 29314-9 LOINC #MONO 0.8 10^3uL L=0.1 H=0.9 28944-6 LOINC #EOS 0.1 10^3uL L=0.0 H=0.6 712-0 LOINC #BASO 0.07 10^3uL L=0.00 H=0.10 64025-3 LOINC #IM GRANS 0.0 10^3uL L=0.0 H=7.0 73138-0 LOINC %IM GRANS 0.3 % L=0.0 H=5.0 04068-8 LOINC %NRB 0.0 L=0.0 H=0.2 51614-9 LOINC #NRB 0.000 L=0.000 H=0.012 65157-0 LOINC MANUAL DIFF NOT INDICATED RBC MORPH NOT INDICATED LIVER PROFILE - Collect Date /Time: 05/27/2023 15:55 [facility] ID: [id number] [address] [place], [place], [id number] LOINC: 50003-3 Test Value Unit Reference Range Code Code System Flag ALT 27 U/L L=9 H=72 1742-6 LOINC AST 29 U/L L=15 H=46 1920-8 LOINC ALKALINE PHOS 81 U/L L=38 H=126 6768-6 LOINC TOTAL PROTEIN 8.7 g/L L=6.3 H=8.2 2885-2 LOINC H TOTAL BILI 0.8 mg/dL L=0.2 H=1.3 1975-2 LOINC DIRECT BILI 0.0 mg/dL L=0.0 H=0.3 1968- LOINC INDIRECT BILI 0.50 mg/dL L=0.00 H=1.10 1970- LOINC ALBUMIN 4.9 G/dL L=3.5 H=5.0 1750-7 LOINC MAGNESIUM - Collect Date/Roland e: 05/27/2023 15:55 [facility] ID: [id number] [address] [place] [address], [id number] LOINC: 70144-9 Test Value Unit Reference Range Code Code System Flag MAGNESIUM 2.3 mg/dL L=1.6 H=2.3 57378-8 LOINC SARS COV2 PCR - Collect Lawrence e/Time: 05/27/2023 15:46 [facility] ID: [id number] [address] [place] [address], [id number] LOINC: 55299-6 Test Value Unit Reference Range Code Code System Flag SARS COV2 PCR NEGATIVE 44671-8 LOINC SENT TO [facility] RN? YES A Social History Type Status Start Date End Date Code Code Syst em Smoking History Current every day smoker [id number] SNOMED CT Sex Male Hospital Discharge Instructions [...] Co de Code System CODEINE Vomiting (SNOMED-CT: 125799775), NAUSEA (SNOMED-CT: null), VOMITING (SNOMED-CT: null) Active 2670 RxNorm TORADOL Vomiting (SNOMED-CT: 030016939), NAUSEA (SNOMED-CT: null), VOMITING (SNOMED-CT: null) Active 16798 RxNorm Plan of Treatment No Data Found Encounters Encounter Diagnosis Start Date Code Code Sys tem Low self-esteem 05/27/2023 SNOMED-CT Personal Care Team Section Performer Name Performer Role Active Date Inactive Da te
--- OUTSIDE RECORDS SUMMARY | 2024-09-01 14:05 | XMS_ITS ---
Author Organization Unknown Address [address] [place] [phone] Phone Care Team Providers Care Service Station Equipment Mechanic Name Role Phone AIDAN HOROWITZ Attending Unavailable NO PCP Primary Unavailable Immunization Immunization Date Status Additional Notes Code Code System COVID-19, mRNA, LNP-S, PF, 1 00 mcg/0.5mL dose or 50 mcg/0.25mL dose 07/11/2020 Completed 207 CVX Results SARS COV2 PCR - Collect Date /Time: 10/17/2023 23:18 [facility] ID: [id number] [address] [place] [address], [id number] LOINC: 50025-6 Test Value Unit Reference Range Code Code System Flag SARS COV2 PCR NEGATIVE 78841-2 LOINC SENT TO [facility] RN? NO URINALYSIS w/Microscopy/C&S if indicated - Collect Date/Time: 10/17/2023 23:07 [facility] ID: [id number] [address] [place] [address], [id number] LOINC: 05201-0 Test Value Unit Reference Range Code Code System Flag UR SOURCE VOIDED 08820-5 LOINC COLOR DK YELLOW YELLOW 5778-6 LOINC CLARITY SL CLOUDY CLEAR 23680-9 LOINC SPEC GRAVITY 1.025 1.000-1.030 5811-5 LOINC PH 6.5 5.0 - 6.5 5803-2 LOINC LEUK EST NEGATIVE NEGATIVE 5799-2 LOINC NITRATE NEGATIVE NEGATIVE PROTEIN TRACE NEGATIVE 5804-0 LOINC GLUCOSE NEGATIVE NEGATIVE 53852-9 LOINC KETONES 1+ NEGATIVE 35934-3 LOINC A UROBILINOGEN 0.2 NEGATIVE 5818-0 LOINC BILIRUBIN 1+ NEGATIVE 59091-5 LOINC BLOOD NEGATIVE NEGATIVE 98934-9 LOINC WBC 0-2 0 - 2 90637-7 LOINC RBC 0-2 0 - 2 43191-6 LOINC EPITHELIAL RARE RARE-FEW 89430-8 LOINC BACTERIA FEW NONE SEEN 77714-1 LOINC MUCUS MANY NONE SEEN 8247-9 LOINC A YEAST NOT PRESENT NOT PRESENT 29932-8 LOINC CASTS SEE BELOW 43409-7 LOINC CRYSTALS NONE SEEN 60366-8 LOINC CULTURE? NO 8251-1 LOINC DIAGNOSIS N/A URINE DRUG SCREEN 12 PANEL R APID - Collect Date/Time: 10/17/2023 23:07 [facility] ID: [id number] [address] [place] [address], [phone] LOINC: Test Value Unit Reference Range Code Code System Flag THC NEGATIVE PCP NEGATIVE COCAINE POSITIVE 57758-4 LOINC A METHAMPHETAMINES POSITIVE A OPIATES NEGATIVE AMPHETAMINES POSITIVE 53756-6 LOINC A BENZO NEGATIVE 63813-0 LOINC TCA NEGATIVE METHADONE NEGATIVE BARBITUATES NEGATIVE OXYCODONE NEGATIVE TSH - Collect Date/Time: 18:40 [facility] ID: [id number] [address] [place] [address], [id number] LOINC: 98213-9 Test Value Unit Reference Range Code Code System Flag TSH. 1.450 uIU/L L=0.470 H=4.680 09207-5 LOINC LIVER PROFILE - Collect Date /Time: 10/17/2023 18:40 [facility] ID: [id number] [address] [place] [address], [phone] LOINC: 45321-1 Test Value Unit Reference Range Code Code System Flag ALT 18 U/L L=9 H=72 1742-6 LOINC AST 27 U/L L=15 H=46 1920-8 LOINC ALKALINE PHOS 90 U/L L=38 H=126 6768-6 LOINC TOTAL PROTEIN 8.7 g/L L=6.3 H=8.2 2885-2 LOINC H TOTAL BILI 1.0 mg/dL L=0.2 H=1.3 1974-2 LOINC DIRECT BILI 0.0 mg/dL L=0.0 H=0.3 1967-7 LOINC INDIRECT BILI 0.80 mg/dL L=0.00 H=1.10 1970- LOINC ALBUMIN 5.0 G/dL L=3.5 H=5.0 1750-7 LOINC MAGNESIUM - Collect Date/Roland e: 10/17/2023 18:40 [facility] ID: [id number] [address] [place] [address], [phone] LOINC: 72899-8 Test Value Unit Reference Range Code Code System Flag MAGNESIUM 2.3 mg/dL L=1.6 H=2.3 LOINC BASIC METABOLIC PANEL - Serafin ect Date/Time: 10/17/2023 18:40 [facility] ID: [id number] [place] [address], [phone] LOINC: 27330-0 Test Value Unit Reference Range Code Code System Flag FASTING UNKNOWN BUN 33 mg/dL L=7 H=20 3094-0 LOINC H CREATININE 1.10 mg/dL L=0.66 H=1.25 2160-0 LOINC GLUCOSE 103 mg/dL L=74 H=106 2345-7 LOINC CALCIUM 9.9 mg/dL L=8.3 H=10.5 40821-5 LOINC SODIUM 137 mmol/L L=132 H=144 2951-2 LOINC POTASSIUM 3.8 mmol/L L=3.5 H=5.1 2823-3 LOINC CHLORIDE 103 mmol/L L=98 H=107 2075-0 LOINC CO2 26.0 mmol/L L=22.0 H=30.0 2027-9 LOINC ANION GAP 12 L=10 H=20 63345-7 LOINC BUN/CREAT 30.0 3097-3 LOINC AGE 37 86551-9 LOINC eGFR NON-AFR 80 ml/min eGFR AFR AMER 97 ml/min CBC W/ DIFF - Collect Date/T alhaji: 10/17/2023 18:40 [facility] ID: [id number] [address] [place], [place], [id number] LOINC: 20889-4 Test Value Unit Reference Range Code Code System Flag WBC 12.9 10^3uL L=4.8 H=10.8 H RBC 4.66 10^6uL L=4.60 H=6.20 HEMOGLOBIN 14.0 g/dL L=14.0 H=18.0 718-7 LOINC HEMATOCRIT 41.4 VOL% L=42.0 H=52.0 4544-3 LOINC L MCV 88.8 fL L=80.0 H=94.0 MCH 30.0 pg L=27.0 H=32.0 MCHC 33.8 g/dL L=32.0 H=36.0 PLATELETS 342 10^3uL L=100 H=400 94631-7 LOINC RDW 12.8 % L=11.7 H=15.5 %GRAN 71.8 % L=40.0 H=70.0 43904-9 LOINC H %LYMPH 15.6 % L=20.0 H=45.0 736-9 LOINC L %MONO 11.0 % L=2.0 H=10.0 12179-8 LOINC H %EOS 0.7 % L=0.0 H=6.0 713-8 LOINC %BASO 0.5 % L=0.0 H=3.0 706-2 LOINC #NEUT 9.2 10^3uL L=1.9 H=7.6 69355-2 LOINC H #LYMPH 2.0 10^3uL L=0.9 H=4.9 04485-1 LOINC #MONO 1.4 10^3uL L=0.1 H=0.9 03440-0 LOINC H #EOS 0.1 10^3uL L=0.0 H=0.6 712-0 LOINC #BASO 0.07 10^3uL L=0.00 H=0.10 36451-7 LOINC #IM GRANS 0.1 10^3uL L=0.0 H=7.0 09957-1 LOINC %IM GRANS 0.4 % L=0.0 H=5.0 18225-9 LOINC %NRB 0.0 L=0.0 H=0.2 81082-8 LOINC #NRB 0.000 L=0.000 H=0.012 70912-9 LOINC MANUAL DIFF NOT INDICATED RBC MORPH NOT INDICATED OD [id number] YLATE-ETOH - Collect Date/Time: 10/17/2023 18:40 [facility] ID: [id number] [address] [place], [place], [id number] LOINC: Test Value Unit Reference Range Code Code System Flag ACETAMINOPHEN < 10 ug/dL L=0 H=10 3298-7 LOINC SALICYLATE < 1 mg/dL L=0 H=5 4024-6 LOINC ALCOHOL < 10.00 mg/dL L=0.00 H=50.00 5643-2 LOINC Social History Type Status Start Date End Date Code Code Syst em Smoking History Current every day smoker [id number] SNOMED CT Sex Male Hospital Discharge Instructions [...] Co de Code System CODEINE Vomiting (SNOMED-CT: 049506256), NAUSEA (SNOMED-CT: null), VOMITING (SNOMED-CT: null) Active 2670 RxNorm TORADOL Vomiting (SNOMED-CT: 975129735), NAUSEA (SNOMED-CT: null), VOMITING (SNOMED-CT: null) Active 84471 RxNorm Plan of Treatment No Data Found Encounters Encounter Diagnosis Start Date Code Code Sys tem Suicidal ideations 10/17/2023 SNOMED-CT Personal Care Team Section Performer Name Performer Role Active Date Inactive Da te
--- NOTE | 2024-09-01 14:08 | ECG_ITS ---
Test Date: 2024-09-01 14:29:24 Measurements Intervals Doucette Rate: 99 P: 70 NV: 123 QRS: 88 QRSD: 98 T: 65 QT: 342 QTc: 440 Interpretive Statements SINUS RHYTHM POSSIBLE LEFT ATRIAL ENLARGEMENT [-0.1mV P-WAVE IN V1/V2] INCOMPLETE RIGHT BUNDLE BRANCH BLOCK [90+ ms QRS DURATION, TERMINAL R IN V1/V2, 40+ ms S IN I/aVL/V4/V5/V6] ABNORMAL ECG No previous ECG available for comparison Electronically Signed On 09-02-2024 10:00:21 CDT by Heath Medina M.D.
[2024-09-01 14:27] LABS: Basophils Absolute Auto 0.04 K/mm3 (0.00-0.10); Basophils Percent Auto 0.5 % (0.0-1.0); Eosinophils Absolute Auto 0.11 K/mm3 (0.02-0.50); Eosinophils Percent Auto 1.4 % (1.0-6.0); Hematocrit 37.5 % (40.0-54.0); Hemoglobin 12.6 g/dL (14.0-18.0); Immature Granulocyte Absolute 0.02 K/mm3 (0.00-0.00); Immature Granulocyte Percent A 0.3 % (0.0-0.0); Lymphocytes Absolute Auto 2.05 K/mm3 (1.10-4.50); Lymphocytes Percent Auto 25.9 % (18.0-42.0); Mean Corpuscular HGB Conc 33.6 g/dL (32-36); Mean Corpuscular Hemoglobin 30.4 pg (27.0-31.0); Mean Corpuscular Volume 90.4 fL (78.0-102.0); Mean Platelet Volume 8.6 fl (8.7-11.0); Monocytes Absolute Auto 0.81 K/mm3 (0.10-0.90); Monocytes Percent Auto 10.2 % (2.0-11.0); Neutrophils Absolute Auto 4.88 K/mm3 (1.70-7.20); Neutrophils Percent Auto 61.7 % (50.0-70.0); Platelet Count Result 317 K/mm3 (150-420); Red Blood Count 4.15 M/mm3 (4.70-6.10); Red Cell Distribution Width 12.9 % (11.6-14.4); White Blood Count 7.9 K/mm3 (4.8-10.8)
[2024-09-01 14:41] LABS: Alanine Aminotransferase 43 U/L (6-50); Albumin Level 4.2 g/dL (3.5-5.1); Alkaline Phosphatase 66 U/L (38-126); Anion Gap 6 mmol/L (4-12); Aspartate Amino Transferase 63 U/L (17-59); Bilirubin,Total 0.4 mg/dL (0.2-1.3); Blood Urea Nitrogen 16 mg/dL (9-20); Calcium 8.9 mg/dL (8.4-10.2); Carbon Dioxide 25 mmol/L (22-30); Chloride 106 mmol/L (98-107); Estimated CRCL calculation 111 ml/min; Estimated Glomerular Filt Rate > 60; Glucose 96 mg/dL (65-110); Osmolality Calculated 285 mOsm/kg (285-295); Potassium 3.5 mmol/L (3.4-5.0); Sodium 137 mmol/L (137-145); Total Protein 7.1 g/dL (6.3-8.2)
[2024-09-01] MEDS: ACETAMINOPHEN 500 MG TABLET 1000 MG PO (14:44)
[2024-09-01 14:52] LABS: D Dimer 1.17 mg/L (0.19-0.50)
[2024-09-01 14:53] LABS: Troponin I < 0.012 ng/mL (0.000-0.034)
--- OUTSIDE RECORDS SUMMARY | 2024-09-01 14:53 | XMS_ITS | Encounter Summary ---
Author Organization [facility] Address [address] [place] [address] Care Team Providers Care Stud Sheep Farmer Name Role Phone None, Provider Primary Care Provider Unavaila Solitario Fernandez MD Primary Care Provider [phone] Solitario Trujillo MD Unavailable Encounter Details Date Type Department Care Team (Late st Contact Info) Description 07/04/2017 Abstract [facility] CONVERSION [address] [place] [address] , Generic Conversion, Social History Tobacco Use Types Packs/Day Years Used Date Smoking Tobacco: Never Assessed Sex and Gender Information Value Date Recorded Sex Assigned at Not on file Legal Sex Male 7:36 PM CDT Gender Identity Not on file Sexual Orientation Not on file documented as of this encounter Plan of Treatment Not on file documented as of this encounter Visit Diagnoses Not on filedocumented in this encounter Additional Health Concerns Infection Onset Date Last Indicated Resolved Time COVID-19 Rule Out 12/17/2020 12/17/2020 12/17/2020 12:20 PM CDT COVID-19 Rule Out 01/27/2021 01/27/2021 01/27/2021 4:23 AM CDT COVID-19 Rule Out 01/27/2021 01/27/2021 01/27/2021 7:02 PM CDT COVID-19 Rule Out 05/02/2022 05/02/2022 05/02/2022 6:38 PM MEDICAL OFFICE ASSISTANT COVID-19 Rule Out 05/02/2022 05/02/2022 05/03/2022 10:36 PM MEDICAL OFFICE ASSISTANT documented as of this encounter Care Teams [employer] Sheep Farmer Relationship Specialty Start Date End Date None, Provider, PCP - General 10/05/18 05/01/22 Solitario Trujillo MD [address] [place] [id number] PCP - General Psychiatry 05/02/22 Solitario Turjillo MD [address] [place] [id number] Psychiatry 05/02/23 documented as of this encounter
--- OUTSIDE RECORDS SUMMARY | 2024-09-01 14:53 | XMS_ITS | Clinical Summary ---
Author Organization [facility] Address [address] [facility] [place] [address] Care Team Providers Care Joint Maker Machine Name Role Phone Solitario Trujillo MD Primary Care Provider [phone] Source Comments [facility],non-owned Affiliates and Associated Physician Practices is amultiple site organization consisting of ambulatory clinics and hospital sitesin [place], [place] and [place]. This disclosure is being madepursuant to the Care Everywhere program and may not contain all information available regarding this patient. Last updated 18.[facility] Allergies Active Allergy Reactions Criticality Noted Date [...] Date Recorded PHQ2 TOTAL SCORE 6 03/27/2021 [facility] Occupat ional Health - Occupational Stress [...] place to sleep or slept in a halfway (including now)? 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
--- OUTSIDE RECORDS SUMMARY | 2024-09-01 14:53 | XMS_ITS | Clinical Summary ---
Author Organization [facility] Address Formerly [facility] [place] [address] Care Team Providers Care Certified Family Mediator Name Role Phone Solitario Trujillo MD Primary Care Provider [phone] Solitario Trujillo MD Unavailable Allergies Active Allergy Reactions Criticality Noted Date Comments Erythromycin Unknown 01/07/2021 Fluoxetine Anxiety Low 03/17/2021 Pt would state it makes me feel worse, adverse reactions Ketorolac Unknown 01/07/2021 Medications * This document contains information received from the source organization and may not represent a complete record from that organization. No known medications Active Problems Problem Noted Date Diagnosed Date Moderate episode of recurrent major depressive d isorder 05/02/2023 Anxiety 05/02/2023 History of homicidal ideation 05/02/2023 History of suicidal ideation 05/02/2023 Tobacco use disorder 02/16/2021 Spells of trembling 10/05/2018 Immunizations Immunization Administration Dates Next Due MODERNA COVID-19 (12+) MRNA, LNP-S, PF, 100 MCG/ 0.5 ML DOSE 07/11/2020 Social History Tobacco Use Types Packs/Day Years Used Date Smoking Tobacco: Every Day Cigarettes Smokeless Tobacco: Never Sex and Gender Information Value Date Recorded Sex Assigned at Not on file Legal Sex Male 7:36 PM CDT Gender Identity Not on file Sexual Orientation Not on file Last Filed Vital Signs Vital Sign Reading Time Taken Comments Blood Pressure 97/66 05/02/2022 8:30 PM JEWELRY MOLD MAKER Pulse 64 05/02/2022 8:30 PM JEWELRY MOLD MAKER Temperature 36.7 C (98 F) 05/02/2022 5:33 PM JEWELRY MOLD MAKER Respiratory Rate 18 05/02/2022 8:30 PM JEWELRY MOLD MAKER Oxygen Saturation 100% 05/02/2022 8:30 PM JEWELRY MOLD MAKER Inhaled Oxygen Concentration - - Weight 81.6 kg (180 lb) 05/02/2022 5:33 PM JEWELRY MOLD MAKER Height 185.4 cm (6' 1 ) 05/02/2022 5:33 PM JEWELRY MOLD MAKER Body Mass Index 23.75 05/02/2022 5:33 PM JEWELRY MOLD MAKER Plan of Treatment Health Maintenance Due Date Last Done Comments Annual Physical 1988 DTaP, Tdap and Td Vaccines ( 1 - Tdap) 2004 Hepatitis B Vaccines (1 of 3 - 19+ 3-dose series) 2004 Pneumococcal Vaccine: Pediat rics (0 to 5 Years) and At-Risk Patients (6 to 49 Years) (1 of 2 - PCV) 2004 COVID-19 Vaccine (2 - 2023-2 5 season) 2023 07/11/2020 PHQ-2 (Physician Beulah) 04/20/2024 Hepatitis C Completed 10/05/2018 HPV Vaccines Aged Out No longer eligi ble based on patient's age to complete this topic Meningococcal B Vaccine Aged Out No l onger eligible based on patient's age to complete this topic Meningococcal Vaccine Aged Out No germaine georgi eligible based on patient's age to complete this topic RSV Immunizations Under 20 Months Aged Out No longer eligible based on patient's age to complete this topic Procedures Procedure Name Priority Date/Time Associated Diagnosis Comments HEPATITIS PANEL,ACUTE Routine 10/05/2018 2:55 AM CDT from Last 3 Months or Most Recently Relevant to Health Maintenance Results * HEPATITIS PANEL,ACUTE (10/05/2018 2:55 AM CDT) HEPATITIS B SURFACE AG NON-REACT PRISCILLA NON-REACT PRISCILLA 10/05/2018 9:25 AM CDT [facility] Comment:HBsAg NOT DETECTED. HEP B CORE IGM NON-REACT PRISCILLA NON-REACT PRISCILLA 10/05/2018 9:25 AM CDT [facility] Comment: IgM ANTI HBc NOT DETECTED. DOES NOT EXCLUDE THE POSSIBILITY OF EXPOSURE TO OR INFECTION WITH HBV. NO RETEST REQUIRED. HIGH DOSES OF BIOTIN MAY INTERFERE WITH THIS TEST RESULT. CORRELATION TO CLINICAL HISTORY AND PRESENTATION RECOMMENDED. HAV IGM NON-REACT PRISCILLA NON-REACT PRISCILLA 10/05/2018 9:25 AM CDT [facility] Comment: IgM ANTI HAV NOT DETECTED. DOES NOT EXCLUDE THE POSSIBILITY OF EXPOSURE TO OR INFECTION WITH HAV. LEVELS OF IgM ANTI HAV MAY BE BELOW THE CUTOFF IN EARLY INFECTION. HEPATITIS C AB NON-REACT PRISCILLA NON-REACT PRISCILLA 10/05/2018 9:25 AM CDT [facility] Comment: ANTIBODIES TO HCV NOT DETECTED. DOES NOT EXCLUDE THE POSSIBILITY OF EXPOSURE TO HCV. 10/05/2018 2:55 AM CDT us Edgardo Harvey MD LABORATORY Final Result [facility] [address] [place] [address], [id number] from Last 3 Months or Most Recently Relevant to Health Maintenance Insurance [employer] Advance Directives * Full Code (Latest Code Status on File) Date Activated Date Inactivated Comments 10/05/2018 2:15 AM 10/07/2018 1:37 PM Care Teams Certified Family Mediator Relationship Specialty Start Date End Date Solitario Trujillo MD [address] [place] [id number] PCP - General Psychiatry 05/02/22 Solitario Trujillo MD [address] [place] [id number] Psychiatry 05/02/23
--- OUTSIDE RECORDS SUMMARY | 2024-09-01 14:53 | XMS_ITS | Encounter Summary ---
Author Organization [facility] Address [address] [place] [address] Care Team Providers Care Booth Operator Name Role Phone None, Provider Primary Care Provider Unavaila Solitario Fernandez MD Primary Care Provider [phone] Solitario Trujillo MD Unavailable Encounter Details Date Type Department Care Team (Late st Contact Info) Description 09/25/2018 Abstract [facility] CONVERSION [address] [place] [address] , Generic Conversion, Social History Tobacco Use [...] Rule Out 05/02/2022 05/02/2022 05/02/2022 6:38 PM MANAGER FINE DINING COVID-19 Rule Out 05/02/2022 05/02/2022 05/03/2022 10:36 PM MANAGER FINE DINING documented as of this encounter Care Teams Booth Operator Relationship Specialty Start Date End Date None, Provider, PCP - General 10/05/18 05/01/22 Solitario Trujillo MD [address] [place] [id number] PCP - General Psychiatry 05/02/22 Solitario Trujillo MD [address] [place] [id number] Psychiatry 05/02/23 documented as of this encounter
--- NOTE | 2024-09-01 15:19 | PC.NURSE ---
Patient taken down to CT. Will medicate when patient is back in room.
[2024-09-01] MEDS: MORPHINE SULFATE (*CRX) 4 MG/ML INJ IV PUSH (15:27)
[2024-09-01] MEDS: SODIUM CHLORIDE 0.9% IV 500 ML 999 ML IV CONT (15:27)
--- NOTE | 2024-09-01 15:48 | ED_ITS ---
HPI - Extremity Injury (Lower) General Chief Complaint: Extremity Injury, Lower Stated Complaint: right foot pain Time Seen by Provider: 09/01/24 14:05 Source: patient and family Mode of arrival: ambulatory Limitations: physical limitation and clinical condition History of Present Illness HPI Narrative: this is a 38-year-old male with no significant past medical history presents with some right foot pain after he jumped off a shed and causing swelling and pain to his foot and ankle, patient does have history of anxiety and also complains of chest discomfort and shortness of breath. There is no fever chills no nausea vomiting there is pain in his right foot and he rates about 8/10. MD complaint: ankle injury and foot injury Onset (ago): day(s) Injury: Right: foot ( Tenderness and swelling with palpation) Type of Injury: blunt Place: street/outdoors Severity: severe Severity scale (1-10): 8 Related Data Home Medications Medication Instructions Recorded Confirmed Last Taken Type citalopram 40 mg tablet (Celexa) 40 mg PO DAILY 06/14/22 07/09/23 Unknown History clonazepam 1 mg tablet (Klonopin) 1 mg PO BID 06/14/22 07/09/23 Unknown History duloxetine 30 mg capsule,delayed 120 mg PO DAILY 06/14/22 07/09/23 Unknown History release (Cymbalta) propranolol 20 mg tablet 60 mg PO DAILY 06/14/22 07/09/23 Unknown History quetiapine 200 mg tablet mg 07/09/23 Unknown History Allergies Allergy/AdvReac Type Severity Reaction Status Date / Time erythromycin base Allergy Unknown Verified 09/01/24 14:06 Review of Systems 2 Review of Systems: All systems reviewed & are unremarkable except as noted in HPI and below PMFSH Past Medical History Medical History Depression with suicidal ideation Depression Surgical History Surgical History No pertinent past surgical history Social History Social History Smoking packs per day: 0.5 Smoking cigarettes per day: 10.0 Smoking status: Current every day smoker Alcohol intake: never Substance use: never Exam 2 Const: General: healthy appearing and no acute distress Nutritional Appearance: thin Orientation/consciousness: patient oriented x3 L imitations: no limitations HENMT: Head: normal to inspection Eyes: Conjunctivae: conjunctivae normal Pupils: Equal, round and reactive pupils present Chest: Chest palpation & inspection: normal inspection of the chest Resp: Effort & Inspection: normal respiratory effort Auscultation: clear to auscultation bilaterally Cardio: Rate: regular rate Rhythm: regular rhythm GI: GI Palp: Yes Soft to palpation Auscultation: normal bowel sounds Skin: General skin exam: normal color Rashes: no rashes Wounds: wounds noted Neuro: General: patient oriented x3, moves all extremities and no meningeal signs Extrem: Other: right ankle and heel pain with swelling and tenderness with palpation. Course Course Emergency Course: Patient received morphine for pain control, had normal sinus rhythm on his EKG elevated D-dimer and CTA showed no acute pulmonary embolism. Patient had x-ray performed which shows an acute calcaneal fracture on the right. patient to be placed in a posterior splint the right foot and ankle and spoke with Orthopedics at [facility] in [facility] that accepted patient and will see him in a follow-up in approximately 1 week. This was relayed to the patient and family as well. Vital Signs Vital signs: Vital Signs Temperature 36.8 C 09/01/24 14:02 Pulse Rate 112 H 09/01/24 14:02 Respiratory Rate 19 09/01/24 14:02 Blood Pressure 137/104 H 09/01/24 14:02 Pulse Oximetry 98 09/01/24 14:02 Oxygen Delivery Room Air 09/01/24 14:02 Temperature 36.8 C 09/01/24 14:02 Pulse Rate 72 09/01/24 18:31 Respiratory Rate 18 09/01/24 18:31 Blood Pressure 125/83 09/01/24 18:30 Pulse Oximetry 100 09/01/24 18:31 Oxygen Delivery Room Air 09/01/24 14:02 MDM - Extremity Injury (Lower) Lab Data 09/01/24 14:23 09/01/24 14:22 Labs: Lab Results 09/01/24 09/01/24 Range/Units 14:22 14:23 WBC 7.9 (4.8-10.8) K/mm3 RBC 4.15 L (4.70-6.10) M/mm3 Hgb 12.6 L (14.0-18.0) g/dL Hct 37.5 L (40.0-54.0) % MCV 90.4 (78.0-102.0) fL MCH 30.4 (27.0-31.0) pg MCHC 33.6 (32-36) g/dL RDW 12.9 (11.6-14.4) % Plt Count 317 (150-420) K/mm3 MPV 8.6 L (8.7-11.0) fl Immature Gran % (Auto) 0.3 H (0.0-0.0) % Neut % (Auto) 61.7 (50.0-70.0) % Lymph % (Auto) 25.9 (18.0-42.0) % [place] % (Auto) 10.2 (2.0-11.0) % Eos % (Auto) 1.4 (1.0-6.0) % Baso % (Auto) 0.5 (0.0-1.0) % Lymph # (Auto) 2.05 (1.10-4.50) K/mm3 [place] # (Auto) 0.81 (0.10-0.90) K/mm3 Eos # (Auto) 0.11 (0.02-0.50) K/mm3 Baso # (Auto) 0.04 (0.00-0.10) K/mm3 Abs Immat Gran (auto) 0.02 H (0.00-0.00) K/mm3 Absolute Neuts (auto) 4.88 (1.70-7.20) K/mm3 Absolute Nucleated RBC 0.00 (0.00-0.00) K/mm3 Nucleated RBC % 0.0 (0-0.0) % D-Dimer 1.17 H* (0.19-0.50) mg/L Sodium 137 (137-145) mmol/L Potassium 3.5 (3.4-5.0) mmol/L Chloride 106 (98-107) mmol/L Carbon Dioxide 25 (22-30) mmol/L Anion Gap 6 (4-12) mmol/L BUN 16 (9-20) mg/dL Creatinine 0.83 (0.7-1.3) mg/dL Estim Creat Clear Calc 111 ml/min Estimated GFR > 60 (59 - ) Glucose 96 (65-110) mg/dL Calculated Osmolality 285 (285-295) mOsm/kg Calcium 8.9 (8.4-10.2) mg/dL Total Bilirubin 0.4 (0.2-1.3) mg/dL AST 63 H (17-59) U/L ALT 43 (6-50) U/L Alkaline Phosphatase 66 (38-126) U/L Troponin I < 0.012 (0.000-0.034) ng/mL Total Protein 7.1 (6.3-8.2) g/dL Albumin 4.2 (3.5-5.1) g/dL Critical Care Time Critical Care Time Critical Care Time: No Discharge Plan Discharge Clinical Impression: Calcaneal fracture Patient Disposition: Home Condition: Stable Instructions: Antibiotic Form, Calcaneal Fracture (ED) Additional Instructions: advised follow-up with Orthopedics and will advised patient to take pain medication as prescribed. limited weight-bearing and advised patient to obtain crutches. Patient Language: Slovenian Prescriptions: New oxycodone-acetaminophen [Percocet] 5-325 mg tablet 1 tablet PO Q6H PRN (Reason: pain) Qty: 20 0RF (DME) crutches See Rx Instructions .Route .MEDSUPPLY Qty: 1 0RF Rx Instructions: As directed No Action clonazepam [Klonopin] 1 mg tablet 1 mg PO BID duloxetine [Cymbalta] 30 mg capsule,delayed release(DR/EC) 120 mg PO DAILY citalopram [Celexa] 40 mg tablet 40 mg PO DAILY propranolol 20 mg tablet 60 mg PO DAILY quetiapine 200 mg tablet Follow-up/Referrals: Umang Welsh [Other] (Orthopedic Surgeon) Rhys Philip DO [Primary Care Provider] - Time of Disposition: 18:30
[2024-09-01] MEDS: ALPRAZolam (*CRX) 0.5 MG TABLET PO (17:17)
== END 2024-09-01 18:55 | disposition home or self-care (01) ==
PROVIDERS: Emergency Provider Emergency Medicine; PCP Family Medicine
DX: S92.011A Displaced fracture of body of right calcaneus, initial encounter for closed fracture (principal); F17.210 Nicotine dependence, cigarettes, uncomplicated; W17.89XA Other fall from one level to another, initial encounter
CPT/HCPCS: 36415; 71045; 71275; 73610; 73630; 80053; 84484; 85025; 85380; 93005; 96374; 99284; A9270; J2270; J7040; Q9967

== ENCOUNTER 2024-09-28 09:23 | Emergency (ER) | payer OTHER, SELFPAY ==
[2024-09-28 09:24] VITALS: BP 138/92; PULSE 83; RESP 20; TEMP 36.9; O2SAT 100
--- NOTE | 2024-09-28 09:25 | ED_ITS ---
HPI - Extremity Injury (Lower) General Chief Complaint: Extremity Injury, Lower Stated Complaint: pain in rt. heel & anxiety Time Seen by Provider: 09/28/24 09:25 Source: patient Mode of arrival: ambulatory Limitations: no limitations History of Present Illness HPI Narrative: 38-year-old male with a history of anxiety / depression had a calcaneal fracture on 09/01/2024 when he jumped off from a height. He had surgery on 09/14/2024 at [facility]. He presents to the ED with -- ongoing right heel pain. The patient had screws and plate put in. Is trying to get in touch with his ortho specialist who did the surgery. wound is not draining. -- severe anxiety in spite of his usual medications which include citalopram, clonazepam, duloxetine and Seroquel. patient has a prior history of anxiety / depression. No fever chills. complaint: other ( Status post calcaneus surgery) Onset (ago): week(s) ( 2 weeks ago) Type of Injury: other ( surgical repair of the calcaneus) Severity scale (1-10): 10 Relieving factors: immobilization Exacerbating factors: nothing Other symptoms: none Related Data Home Medications ?Medication ?Instructions ?Recorded ?Confirmed ?Last Taken ?Type citalopram 40 mg tablet (Celexa) 40 mg PO DAILY 06/14/22 09/28/24 Unknown History clonazepam 1 mg tablet (Klonopin) 1 mg PO BID 06/14/22 09/28/24 Unknown History duloxetine 30 mg capsule,delayed 120 mg PO DAILY 06/14/22 09/28/24 Unknown History release (Cymbalta) propranolol 20 mg tablet 60 mg PO DAILY 06/14/22 09/28/24 Unknown History quetiapine 200 mg tablet 200 mg PO .qd 07/09/23 09/28/24 Unknown History Allergies Allergy/AdvReac Type Severity Reaction Status Date / Time erythromycin base Allergy Unknown Verified 09/28/24 09:26 Review of Systems Review of Systems: All systems reviewed & are unremarkable except as noted in HPI and below PMFSH Past Medical History Medical History Depression with suicidal ideation Depression Surgical History Surgical History No pertinent past surgical history Social History Social History Smoking packs per day: 0.5 Smoking cigarettes per day: 10.0 Smoking status: Current every day smoker Alcohol intake: never Substance use: never Exam Narrative: Vitals are stable. Afebrile Const: General: no acute distress Orientation/consciousness: patient oriented x3 Limitations: no limitations HENMT: Head: normal to inspection Ears: external ears normal Face/Nose/Sinus: Normal external nose present Face and sinus: normal facial exam Mouth: Yes Normal oral and palatal mucosa present Throat: posterior oropharynx normal Eyes: Conjunctivae: conjunctivae normal Pupils: Equal, round and reactive pupils present EOM: EOMs intact bilaterally Direct Ophthalmoscopy: no photophobia Neck: Neck: normal visual inspection, no lymphadenopathy and no meningeal signs Chest: Chest palpation & inspection: normal inspection of the chest Resp: Effort & Inspection: normal respiratory effort Auscultation: clear to auscultation bilaterally Cardio: Rate: regular rate Rhythm: regular rhythm GI: GI Palp: Yes Soft to palpation Auscultation: normal bowel sounds Other: no tenderness/rigidity/rebound : General: Yes no CVA tenderness Back/Spine/Pelvis: Back: no CVA tenderness Skin: General skin exam: normal color Rashes: no rashes Neuro: General: patient oriented x3, moves all extremities, no meningeal signs, no focal motor deficits and CN's II-XI intact bilaterally Cranial nerves: Yes Nystagmus not present Speech: normal speech Extrem: Other: right heel has a 6 cm Incised wound below the lateral malleolus. No drainage from the wound. The wound edges are healthy. No erythema over the wound noted. No swelling of the foot below the wound. dorsalis pedis pulses palpable. Psych: Mental Status: mental status grossly normal Affect: normal affect Attitude: cooperative Course Course Emergency Course: Right calcaneus fracture status post surgical repair postoperative pain severe anxiety Vital Signs Vital signs: Vital Signs Temperature 36.9 C 09/28/24 09:24 Pulse Rate 83 09/28/24 09:24 Respiratory Rate 20 09/28/24 09:24 Blood Pressure 138/92 H 09/28/24 09:24 Pulse Oximetry 100 09/28/24 09:24 Oxygen Delivery Room Air 09/28/24 09:24 Temperature 36.9 C 09/28/24 09:24 Pulse Rate 83 09/28/24 09:24 Respiratory Rate 20 09/28/24 09:24 Blood Pressure 138/92 H 09/28/24 09:24 Pulse Oximetry 100 09/28/24 09:24 Oxygen Delivery Room Air 09/28/24 09:24 MDM - Extremity Injury (Lower) MDM Narrative Medical decision making narrative: postop calcaneal repair pain. Surgical wound looks healthy. anxiety Differential Diagnosis Differential diagnosis: Likely ankle fracture Medical Records Attestation: I reviewed the patient's medical records. Discharge Plan Discharge Clinical Impression: Post-operative pain, Anxiety Patient Disposition: Home Condition: Stable Instructions: Antibiotic Form, Anxiety (ED), Pain Management After Surgery (DC) Additional Instructions: advised the patient to follow-up with ortho specialist. Patient Language: Citizen Of [place] Prescriptions: No Action clonazepam [Klonopin] 1 mg tablet 1 mg PO BID duloxetine [Cymbalta] 30 mg capsule,delayed release(DR/EC) 120 mg PO DAILY citalopram [Celexa] 40 mg tablet 40 mg PO DAILY propranolol 20 mg tablet 60 mg PO DAILY quetiapine 200 mg tablet 200 mg PO .qd oxycodone-acetaminophen [Percocet] 5-325 mg tablet 1 tablet PO Q6H PRN (Reason: pain) Qty: 20 0RF (DME) crutches See Rx Instructions .Route .MEDSUPPLY Qty: 1 0RF Rx Instructions: As directed Follow-up/Referrals: Rhys Philip DO [Primary Care Provider] - Time of Disposition: 10:09
[2024-09-28] MEDS: HYDROcodone/acetaminophen (*CRX) 5-325 MG TABLET 1 TAB PO (09:58)
[2024-09-28] MEDS: KETOROLAC 30 MG/ML VIAL (*BKC) IM (09:58)
[2024-09-28] MEDS: LORazepam (*CRX) 0.5 MG TABLET PO (09:59)
== END 2024-09-28 10:28 | disposition home or self-care (01) ==
LOC: CHSED 10:07
PROVIDERS: Emergency Provider Internal Medicine Critical Care Medicine; PCP Family Medicine
DX: G89.18 Other acute postprocedural pain (principal); F41.9 Anxiety disorder, unspecified; F17.210 Nicotine dependence, cigarettes, uncomplicated
CPT/HCPCS: 96372; 99283; A9270; J1885

== ENCOUNTER 2025-02-24 04:54 | Emergency (ER) | payer OTHER, SELFPAY ==
[2025-02-24] VITALS (68 sets, daily range): BP systolic 99–150; BP diastolic 67–100; PULSE 73–113; RESP 9–39; TEMP 36.4–36.7; O2SAT 95–100
--- NOTE | ~2025-02-24 | CT_ITS ---
CT HEAD NON-CONTRAST Clinical History: AMS Comparison: CT brain 03/19/2018 Technique: Unenhanced axial images skull base to vertex Coronal, sagittal reformats CT images acquired with automatic exposure control for dose reduction DLP: 681 mGy-cm Findings: Sulci, ventricles: Unremarkable. No intracerebral hemorrhage. No evidence acute territorial infarct. No mass effect, midline shift. Bony calvarium intact. Visualized paranasal sinuses: Clear. Mastoid air cells: Clear. IMPRESSION: 1. No acute intracranial findings. Reviewed, dictated and finalized at location R. 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
--- NOTE | ~2025-02-24 | XR_ITS ---
Examination: XR foot RT min 3V Clinical History: PAIN Comparison: 09/01/2024 Technique: 4 views right foot Findings/impression: 1. No acute fracture or dislocation right foot. 2. Calcaneal ORIF. Reviewed, dictated and finalized at location R. MAN CONDUCTOR
--- NOTE | ~2025-02-24 | XR_ITS ---
Examination: XR chest 1V portable Clinical History: AMS ANXIETY Comparison: 09/01/2024 Technique: Portable AP Findings: Heart size normal. Lungs clear. No acute bony abnormality. IMPRESSION: 1. No acute cardiopulmonary findings given portable technique. Reviewed, dictated and finalized at location R. 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
[2025-02-24] MEDS: diazePAM INJ (*CRX) 10 MG/2 ML SYRINGE 5 MG IV PUSH (05:17)
[2025-02-24 05:18] LABS: Hematocrit 39.2 % (42.0-52.0); Hemoglobin 13.2 g/dL (14.0-18.0); Immature Granulocyte Percent A 0.3 % (0-0.5); Lymphocytes Absolute Auto 2.09 K/mm3 (0.9-3.2); Mean Corpuscular HGB Conc 33.7 g/dl (32-36); Mean Corpuscular Hemoglobin 29.6 pg (26-34); Mean Corpuscular Volume 87.9 fl (80-100); Nucleated Red Blood Cells Absolute Auto 0.000 K/mm3 (0.0-0.012); Nucleated Red Blood Cells Perc 0.0 % (0.0-0.2); Platelet Count Result 304 k/mm3 (150-375); Red Blood Count 4.46 M/mm3 (4.6-6.20); White Blood Count 10.2 K/mm3 (4.5-10.0)
[2025-02-24 05:19] LABS: Fractional Inspired Oxygen 21 %; HCO3 VBG 26.6 mEq/l (24.0-30.0); PCO2 VBG 36.1 mmHg (42.0-48.0); PO2 VBG 99.8 mmHg (35.0-45.0)
[2025-02-24] MEDS: ACETAMINOPHEN 500 MG TABLET 1000 MG PO (05:20)
[2025-02-24 05:21] LABS: pH VBG 7.485 (7.300-7.400)
[2025-02-24 05:23] LABS: Add Urine Microscopic? YES; Appearance Urine Cloudy (Clear); Glucose Urine UA Negative (Negative); Leukocyte Esterase Ur 1+ LEU/UL (Negative); Nitrate Urine Negative (Negative); Non Pathogenic Casts 0-2; Specific Grav Ur 1.024 (1.001-1.035)
[2025-02-24 05:27] LABS: Alanine Aminotransferase 233 U/L (6-50); Albumin Level 4.8 g/dL (3.5-5.1); Alkaline Phosphatase 98 U/L (38-126); Anion Gap 11 mmol/L (4-12); Aspartate Amino Transferase 74 U/L (17-59); Bilirubin,Total 0.8 mg/dL (0.2-1.3); Blood Urea Nitrogen 32 mg/dL (9-20); Calcium 9.6 mg/dL (8.4-10.2); Carbon Dioxide 26 mmol/L (22-30); Chloride 97 mmol/L (98-107); Creatine Kinase 360 U/L (55-170); Estimated Glomerular Filt Rate > 60; Glucose 105 mg/dL (65-110); Potassium 3.7 mmol/L (3.4-5.0); Sodium 134 mmol/L (137-145); Total Protein 8.2 g/dL (6.3-8.2)
[2025-02-24 05:30] LABS: Acetaminophen < 10 ug/mL (10-30)
[2025-02-24 05:35] LABS: Salicylate < 1.0 mg/dL (2-20)
[2025-02-24 06:00] LABS: Thyroid Stimulating Hormone Reflex 2.620 uIU/mL (0.465-4.68)
[2025-02-24 06:11] LABS: Cannabinoid Screen Urine Negative (Negative)
--- NOTE | 2025-02-24 06:27 | ED.GENADULT ---
HPI - General Adult General Chief complaint: Altered Mental Status <Ishmael Mroan MD - Last Filed: 02/25/25 06:43> Stated complaint: AMS; FOUND BY PD <Ishmael Moran MD - Last Filed: 02/25/25 06:43> Time Seen by Provider: 02/24/25 04:58 <Ishmael Moran MD - Last Filed: 02/25/25 06:43> History of Present Illness HPI narrative: This is a 39-year-old male brought in by PD after he was found wandering the streets aimlessly. His white substance underneath his nose. Pupils are dilated. Patient was having difficulty communicating he was brought to the ED for evaluation. Patient admits to doing amphetamines. He says he is very anxious and that his right foot hurts. There is no who can come pick him up. <Ishmael Moran MD - Last Filed: 02/25/25 06:43> Related Data Home medications: Home Medications ?Medication ?Instructions ?Recorded ?Confirmed ?Last Taken ?Type citalopram 40 mg tablet (Celexa) 40 mg PO DAILY 06/14/22 09/28/24 Unknown History clonazepam 1 mg tablet (Klonopin) 1 mg PO BID 06/14/22 09/28/24 Unknown History duloxetine 30 mg capsule,delayed 120 mg PO DAILY 06/14/22 09/28/24 Unknown History release (Cymbalta) propranolol 20 mg tablet 60 mg PO DAILY 06/14/22 09/28/24 Unknown History quetiapine 200 mg tablet 200 mg PO .qd 07/09/23 09/28/24 Unknown History <Ishmael Moran MD - Last Filed: 02/25/25 06:43> Allergies/adverse reactions: Allergies Allergy/AdvReac Type Severity Reaction Status Date / Time erythromycin base Allergy Unknown Verified 09/28/24 09:26 <Ishmael Moran MD - Last Filed: 02/25/25 06:43> [facility] Past Medical History Medical History: Medical History Depression with suicidal ideation Depression <Ishmael Moran MD - Last Filed: 02/25/25 06:43> Surgical History Surgical History: Surgical History No pertinent past surgical history <Ishmael Moran MD - Last Filed: 02/25/25 06:43> Social History Social History: Social History Smoking packs per day: 0.5 Smoking cigarettes per day: 10.0 Alcohol intake: never Substance use: never Substance use type: amphetamines and methamphetamine <Ishmael Moran MD - Last Filed: 02/25/25 06:43> Exam Narrative: APPEARANCE: Patient is sitting in bed with his hands on top of his head, he is staring at people in the room and takes a long time to form any words. He is disheveled and malodorous Head: atraumatic. EYES: EOMI, pupils are dilated NOSE: Atraumatic NECK: Trachea midline RESPIRATORY: No increased rate of breathing clear to auscultation CARDIOVASCULAR: RRR, no peripheral edema ABDOMINAL: Non-distended MUSCULOSKELETAl: Focal exam of the right foot revealed old surgical scars but no acute injuries NEURO: Alert. Moving 4/4 extremities SKIN:: Warm, dry. Normal color PSYCHIATRIC: Normal affect <Ishmael Moran MD - Last Filed: 02/25/25 06:43> Course Course Emergency Course: Patient signed out to me at 0700. Reported drug use. Plan was for discharge upon clinical sobriety and safe dispo. Patient intermittently complaining right foot pain and persistent chest pain. Foot x-ray as below. Initial EKG had been fine. Repeat EKG ordered; patient refuses but then does comply and acceptable. Troponin ordered; within normal limits. He continues to request help and complaining of anxiety. He is given additional doses of benzodiazepines. He will throughout the day request to speak with me and at times says similar things and other times he just stares at me or away from me. Remains hemodynamically stable. Tolertes PO including Ensure which he asked for and received. Ketorolac had been ordered for pain. Patient initially did not acknowledge when the nurse attempted to give this. Later reordered and given. Patient would likely benefit from psych evaluation. He is medically clear for this. Still having anxiety. Given Klonipin as this is a home med. His home duloxetine was also ordered although he stated it had not worked; unclear if he has been taking it recently. Crisis team does believe he would benefit from admission. Patient is voluntarily willing to go however they do feel that because he could not fully answer all questions and seemed to be responding to internal stimuli that he could not make this decision for himself necessarily although all are in agreement that it would be a frias choice including the patient himself. Involuntary paperwork is therefore filled out. Patient remains pending an accepting facility. DEON: Care was taken over at [address]. Patient was agitated and disruptive to the environment emergency department. He had to be chemically sedated and then rested through night. He was then transferred to a psychiatric facility without incident. <Ishmael Moran MD - Last Filed: 02/25/25 06:43> Patient signed out to me at 0700. Reported drug use. Plan was for discharge upon clinical sobriety and safe dispo. Patient intermittently complaining right foot pain and persistent chest pain. Foot x-ray as below. Initial EKG had been fine. Repeat EKG ordered; patient refuses but then does comply and acceptable. Troponin ordered; within normal limits. He continues to request help and complaining of anxiety. He is given additional doses of benzodiazepines. He will throughout the day request to speak with me and at times says similar things and other times he just stares at me or away from me. Remains hemodynamically stable. Tolertes PO including Ensure which he asked for and received. Ketorolac had been ordered for pain. Patient initially did not acknowledge when the nurse attempted to give this. Later reordered and given. Patient would likely benefit from psych evaluation. He is medically clear for this. Still having anxiety. Given Klonipin as this is a home med. His home duloxetine was also ordered although he stated it had not worked; unclear if he has been taking it recently. Crisis team does believe he would benefit from admission. Patient is voluntarily willing to go however they do feel that because he could not fully answer all questions and seemed to be responding to internal stimuli that he could not make this decision for himself necessarily although all are in agreement that it would be a frias choice including the patient himself. Involuntary paperwork is therefore filled out. Patient remains pending an accepting facility. <Yazmin Vaughn MD - Last Filed: 02/24/25 20:08> Vital Signs Vital signs: Vital Signs Temperature 98.1 F 02/24/25 04:59 Pulse Rate 103 H 02/24/25 04:59 Respiratory Rate 18 02/24/25 04:59 Blood Pressure 135/77 02/24/25 04:59 Pulse Oximetry 95 02/24/25 04:59 Oxygen Delivery Room Air 02/24/25 04:59 Temperature 97.5 F L 02/24/25 23:45 Pulse Rate 73 02/24/25 23:45 Respiratory Rate 18 02/24/25 23:45 Blood Pressure 142/88 H 02/24/25 23:45 Pulse Oximetry 98 02/24/25 23:45 Oxygen Delivery Room Air 02/24/25 04:59 <Ishmael Moran MD - Last Filed: 02/25/25 06:43> Vital Signs Temperature 98.1 F 02/24/25 04:59 Pulse Rate 103 H 02/24/25 04:59 Respiratory Rate 18 02/24/25 04:59 Blood Pressure 135/77 02/24/25 04:59 Pulse Oximetry 95 02/24/25 04:59 Oxygen Delivery Room Air 02/24/25 04:59 Temperature 97.5 F L 02/24/25 23:45 Pulse Rate 73 02/24/25 23:45 Respiratory Rate 18 02/24/25 23:45 Blood Pressure 142/88 H 02/24/25 23:45 Pulse Oximetry 98 02/24/25 23:45 Oxygen Delivery Room Air 02/24/25 04:59 <Yazmin Vaughn MD - Last Filed: 02/24/25 20:08> Medical Decision Making MDM Narrative Medical decision making narrative: -Course: 39-year-old male brought in for suspected drug overdose. On arrival patient cannot provide us very much information. CT brain was negative. Screening lab work was obtained and the patient's drug screen is positive for amphetamines and benzodiazepines. He was given 5 mg of Valium for anxiolysis. Patient will be monitored until sober and then discharged. -DDX includes but is not limited to: Substance use disorder, homelessness, psychiatric illness <Ishmael Moran MD - Last Filed: 02/25/25 06:43> Vital Signs Vital Signs: Vital Signs Temperature 98.1 F 02/24/25 04:59 Pulse Rate 103 H 02/24/25 04:59 Respiratory Rate 18 02/24/25 04:59 Blood Pressure 135/77 02/24/25 04:59 Pulse Oximetry 95 02/24/25 04:59 Oxygen Delivery Room Air 02/24/25 04:59 Temperature 97.5 F L 02/24/25 23:45 Pulse Rate 73 02/24/25 23:45 Respiratory Rate 18 02/24/25 23:45 Blood Pressure 142/88 H 02/24/25 23:45 Pulse Oximetry 98 02/24/25 23:45 Oxygen Delivery Room Air 02/24/25 04:59 <Ishmael Moran MD - Last Filed: 02/25/25 06:43> Vital Signs Temperature 98.1 F 02/24/25 04:59 Pulse Rate 103 H 02/24/25 04:59 Respiratory Rate 18 02/24/25 04:59 Blood Pressure 135/77 02/24/25 04:59 Pulse Oximetry 95 02/24/25 04:59 Oxygen Delivery Room Air 02/24/25 04:59 Temperature 97.5 F L 02/24/25 23:45 Pulse Rate 73 02/24/25 23:45 Respiratory Rate 18 02/24/25 23:45 Blood Pressure 142/88 H 02/24/25 23:45 Pulse Oximetry 98 02/24/25 23:45 Oxygen Delivery Room Air 02/24/25 04:59 <Yazmin Vaughn MD - Last Filed: 02/24/25 20:08> Lab Data Result diagrams: 02/24/25 05:10 02/24/25 05:10 <Ishmael Moran MD - Last Filed: 02/25/25 06:43> Labs: Lab Results 02/24/25 02/24/25 02/24/25 Range/Units 05:10 05:15 20:02 WBC 10.2 H (4.5-10.0) K/mm3 RBC 4.46 L (4.6-6.20) M/mm3 Hgb 13.2 L (14.0-18.0) g/dL Hct 39.2 L (42.0-52.0) % MCV 87.9 (80-100) fl MCH 29.6 (26-34) pg MCHC 33.7 (32-36) g/dl RDW 13.6 (11.5-14.5) % Plt Count 304 (150-375) k/mm3 MPV 8.5 (7.4-10.4) fl Immature Gran % (Auto) 0.3 (0-0.5) % Neut % (Auto) 67.2 (45.5-73.1) % Lymph % (Auto) 20.5 (18.3-44.2) % [place] % (Auto) 10.7 H (2.6-8.5) % Eos % (Auto) 0.7 (0-4.4) % Baso % (Auto) 0.6 (0.2-1.2) % Lymph # (Auto) 2.09 (0.9-3.2) K/mm3 [place] # (Auto) 1.1 H (0.1-0.6) K/mm3 Eos # (Auto) 0.1 (0-0.3) K/mm3 Baso # (Auto) 0.1 (0.0-0.1) K/mm3 Abs Immat Gran (auto) 0.03 (0.00-0.031) K/mm3 Absolute Neuts (auto) 6.8 H (1.3-6.7) K/mm3 Absolute Nucleated RBC 0.000 (0.0-0.012) K/mm3 Nucleated RBC % 0.0 (0.0-0.2) % Sodium 134 L (137-145) mmol/L Potassium 3.7 (3.4-5.0) mmol/L Chloride 97 L (98-107) mmol/L Carbon Dioxide 26 (22-30) mmol/L Anion Gap 11 (4-12) mmol/L BUN 32 H D (9-20) mg/dL Creatinine 0.80 (0.7-1.3) mg/dL Estim Creat Clear Calc Not Reportable Estimated GFR > 60 (59 - ) Glucose 105 (65-110) mg/dL Lactic Acid 1.4 (0.7-2.0) mmol/L Calcium 9.6 (8.4-10.2) mg/dL Total Bilirubin 0.8 (0.2-1.3) mg/dL AST 74 H (17-59) U/L ALT 233 H (6-50) U/L Alkaline Phosphatase 98 (38-126) U/L Ammonia 26 (9-30) umol/L Total Creatine Kinase 360 H 220 H (55-170) U/L Troponin I < 0.012 (0.000-0.034) ng/mL Total Protein 8.2 (6.3-8.2) g/dL Albumin 4.8 (3.5-5.1) g/dL TSH (Reflex) 2.620 (0.465-4.68) uIU/mL Urine Color Yellow (Yellow) Urine Appearance Cloudy H (Clear) Urine pH 7.0 (5.0-9.0) Ur Specific [place] 1.024 (1.001-1.035) Urine Protein 1+ H (Negative) mg/dL Urine Glucose (UA) Negative (Negative) mg/dL Urine Ketones 1+ H (Negative) mg/dL Ur Blood (Man) Negative (Negative) Urine Nitrate Negative (Negative) Urine Bilirubin Negative (Negative) Urine Urobilinogen 1.0 (<2.0) mg/dL Leukocyte Esterase Rfl 1+ H (Negative) LEYLA/UL Urine RBC 0-2 (0-2) /hpf Urine WBC 11-20 H (0-3) /hpf Ur Squamous Epith Cells Few (Few) /hpf Urine Bacteria None seen /hpf Urine Casts 0-2 Salicylates < 1.0 L (2-20) mg/dL Urine Opiates Screen Negative (Negative) Urine Methadone Screen Negative (Negative) Acetaminophen < 10 L (10-30) ug/mL Ur Barbiturates Screen Negative (Negative) Ur Phencyclidine Scrn Negative (Negative) Ur Amphetamine Screen Positive A (Negative) U Benzodiazepines Scrn Positive A (Negative) Urine Cocaine Screen Negative (Negative) U Cannabinoids Screen Negative (Negative) Ethyl Alcohol < 10 (<10) mg/dL Influenza A (RT-PCR) Negative (Negative) Influenza B (RT-PCR) Negative (Negative) RSV (RT-PCR) Negative (Negative) SARS-CoV-2 RNA (RT-PCR) Negative (Negative) <Ishmael Moran MD - Last Filed: 02/25/25 06:43> Lab Results 02/24/25 02/24/25 02/24/25 Range/Units 05:10 05:15 20:02 WBC 10.2 H (4.5-10.0) K/mm3 RBC 4.46 L (4.6-6.20) M/mm3 Hgb 13.2 L (14.0-18.0) g/dL Hct 39.2 L (42.0-52.0) % MCV 87.9 (80-100) fl MCH 29.6 (26-34) pg MCHC 33.7 (32-36) g/dl RDW 13.6 (11.5-14.5) % Plt Count 304 (150-375) k/mm3 MPV 8.5 (7.4-10.4) fl Immature Gran % (Auto) 0.3 (0-0.5) % Neut % (Auto) 67.2 (45.5-73.1) % Lymph % (Auto) 20.5 (18.3-44.2) % [place] % (Auto) 10.7 H (2.6-8.5) % Eos % (Auto) 0.7 (0-4.4) % Baso % (Auto) 0.6 (0.2-1.2) % Lymph # (Auto) 2.09 (0.9-3.2) K/mm3 [place] # (Auto) 1.1 H (0.1-0.6) K/mm3 Eos # (Auto) 0.1 (0-0.3) K/mm3 Baso # (Auto) 0.1 (0.0-0.1) K/mm3 Abs Immat Gran (auto) 0.03 (0.00-0.031) K/mm3 Absolute Neuts (auto) 6.8 H (1.3-6.7) K/mm3 Absolute Nucleated RBC 0.000 (0.0-0.012) K/mm3 Nucleated RBC % 0.0 (0.0-0.2) % Sodium 134 L (137-145) mmol/L Potassium 3.7 (3.4-5.0) mmol/L Chloride 97 L (98-107) mmol/L Carbon Dioxide 26 (22-30) mmol/L Anion Gap 11 (4-12) mmol/L BUN 32 H D (9-20) mg/dL Creatinine 0.80 (0.7-1.3) mg/dL Estim Creat Clear Calc Not Reportable Estimated GFR > 60 (59 - ) Glucose 105 (65-110) mg/dL Lactic Acid 1.4 (0.7-2.0) mmol/L Calcium 9.6 (8.4-10.2) mg/dL Total Bilirubin 0.8 (0.2-1.3) mg/dL AST 74 H (17-59) U/L ALT 233 H (6-50) U/L Alkaline Phosphatase 98 (38-126) U/L Ammonia 26 (9-30) umol/L Total Creatine Kinase 360 H 220 H (55-170) U/L Troponin I < 0.012 (0.000-0.034) ng/mL Total Protein 8.2 (6.3-8.2) g/dL Albumin 4.8 (3.5-5.1) g/dL TSH (Reflex) 2.620 (0.465-4.68) uIU/mL Urine Color Yellow (Yellow) Urine Appearance Cloudy H (Clear) Urine pH 7.0 (5.0-9.0) Ur Specific [place] 1.024 (1.001-1.035) Urine Protein 1+ H (Negative) mg/dL Urine Glucose (UA) Negative (Negative) mg/dL Urine Ketones 1+ H (Negative) mg/dL Ur Blood (Man) Negative (Negative) Urine Nitrate Negative (Negative) Urine Bilirubin Negative (Negative) Urine Urobilinogen 1.0 (<2.0) mg/dL Leukocyte Esterase Rfl 1+ H (Negative) LEYLA/UL Urine RBC 0-2 (0-2) /hpf Urine WBC 11-20 H (0-3) /hpf Ur Squamous Epith Cells Few (Few) /hpf Urine Bacteria None seen /hpf Urine Casts 0-2 Salicylates < 1.0 L (2-20) mg/dL Urine Opiates Screen Negative (Negative) Urine Methadone Screen Negative (Negative) Acetaminophen < 10 L (10-30) ug/mL Ur Barbiturates Screen Negative (Negative) Ur Phencyclidine Scrn Negative (Negative) Ur Amphetamine Screen Positive A (Negative) U Benzodiazepines Scrn Positive A (Negative) Urine Cocaine Screen Negative (Negative) U Cannabinoids Screen Negative (Negative) Ethyl Alcohol < 10 (<10) mg/dL Influenza A (RT-PCR) Negative (Negative) Influenza B (RT-PCR) Negative (Negative) RSV (RT-PCR) Negative (Negative) SARS-CoV-2 RNA (RT-PCR) Negative (Negative) <Yazmin Vaughn MD - Last Filed: 02/24/25 20:08> ABG Data ABG results: 02/24/25 05:10 VBG pH 7.485 H* VBG pCO2 36.1 L VBG pO2 99.8 H VBG HCO3 26.6 O2 Delivery Device Room air O2 Liters/Min Not Reportable FiO2 21 <Ishmael Moran MD - Last Filed: 02/25/25 06:43> 02/24/25 05:10 VBG pH 7.485 H* VBG pCO2 36.1 L VBG pO2 99.8 H VBG HCO3 26.6 O2 Delivery Device Room air O2 Liters/Min Not Reportable FiO2 21 <Yazmin Vaughn MD - Last Filed: 02/24/25 20:08> Discharge Plan Discharge Clinical Impression: Drug use, Left-sided chest pain, Foot pain, right <Ishmael Moran MD - Last Filed: 02/25/25 06:43> Patient Disposition: Psychiatric Hosp <Ishmael Moran MD - Last Filed: 02/25/25 06:43> Condition: Stable <Ishmael Moran MD - Last Filed: 02/25/25 06:43> Instructions: Antibiotic Form, Methamphetamine Use Disorder (ED) <Ishmael Moran MD - Last Filed: 02/25/25 06:43> Additional Instructions: You had to stay in the emergency department overnight due to amphetamine abuse. Please refrain from using street drugs. Please follow-up with your primary care physician for further management. <Ishmael Moran MD - Last Filed: 02/25/25 06:43> Patient Language: Yi <Ishmael Moran MD - Last Filed: 02/25/25 06:43> Prescriptions: No Action clonazepam [Klonopin] 1 mg tablet 1 mg PO BID duloxetine [Cymbalta] 30 mg capsule,delayed release(DR/EC) 120 mg PO DAILY citalopram [Celexa] 40 mg tablet 40 mg PO DAILY propranolol 20 mg tablet 60 mg PO DAILY quetiapine 200 mg tablet 200 mg PO .qd oxycodone-acetaminophen [Percocet] 5-325 mg tablet 1 tablet PO Q6H PRN (Reason: pain) Qty: 20 0RF (DME) crutches See Rx Instructions .Route .MEDSUPPLY Qty: 1 0RF Rx Instructions: As directed <Ishmael Moran MD - Last Filed: 02/25/25 06:43> Follow-up/Referrals: Rhys Philip DO [Primary Care Provider, [facility]] <Ishmael Moran MD - Last Filed: 02/25/25 06:43> Restraint Face to Face Eval. Evaluation Findings Date/Time of evaluation:: 02/24/251999 <Ishmael Moran MD - Last Filed: 02/25/25 06:43> Pt's immediate situation:: Patient is agitated, he is being disruptive to the healing environment the emergency department, calling out for MD and nursing staff repeatedly, he is not verbally redirectable. Patient was given Haldol and Versed. <Ishmael Moran MD - Last Filed: 02/25/25 06:43> Pt's reaction to intervention:: Patient went to sleep. <Ishmael Moran MD - Last Filed: 02/25/25 06:43> Pt's med/behavioral condition:: psychosis <Ishmael Moran MD - Last Filed: 02/25/25 06:43> Restraint or Seclusion Need Need to continue or terminate:: No further intervention needed. <Ishmael Moran MD - Last Filed: 02/25/25 06:43>
--- NOTE | 2025-02-24 09:18 | PC.NURSE ---
this RN attempted to give pt his pain medication and perform an EKG. pt was uncooperative. pt not looking at this RN when trying to talk to pt. this RN educated pt that the pain medication will help with his foot and the EKG was for the chest pain he expressed to EDP Dr. Vaughn. pt did not consent to either and did not answer questions when this RN was asking about his pain and if he wanted the medication and EKG
[2025-02-24] MEDS: KETOROLAC 30 MG/ML VIAL (*BKC) IV PUSH (10:06)
[2025-02-24] MEDS: diazePAM INJ (*CRX) 10 MG/2 ML SYRINGE 2.5 MG IV PUSH (10:08)
[2025-02-24 11:21] LABS: Troponin I < 0.012 ng/mL (0.000-0.034)
--- NOTE | 2025-02-24 12:05 | ECG_ITS ---
Test Date: 2025-02-24 12:09:46 Measurements Intervals [place] Rate: 106 P: -6 NH: 123 QRS: -23 QRSD: 98 T: 5 QT: 336 QTc: 447 Interpretive Statements SINUS TACHYCARDIA POSSIBLE RIGHT VENTRICULAR CONDUCTION DELAY LEFT VENTRICULAR HYPERTROPHY Electronically Signed On 02-24-2025 12:45:49 SAS ANALYST by Robby Valdivia D.O
[2025-02-24] MEDS: diazePAM (*CRX) 5 MG TABLET PO (12:19)
[2025-02-24] MEDS: NITROGLYCERIN SL 0.4 MG TABLET SUBLINGUAL (13:27)
[2025-02-24] MEDS: HYDROmorphone HCL INJ (*CRX) 1 MG/ML SYR 0.5 MG IV PUSH (13:27)
--- NOTE | 2025-02-24 14:27 | PC.NURSE ---
This RN spoke with Dr. Vaughn regarding need for pt to have psychosocial.
--- NOTE | 2025-02-24 15:16 | PC.NURSE ---
CRISIS at bedside
[2025-02-24] MEDS: clonazePAM (*CRX) 0.5 MG TABLET 1 MG PO ×2 (16:32→19:30)
--- NOTE | 2025-02-24 17:14 | PC.NURSE ---
Pt MAR: Dilaudid 0.5mg @ 1321 Toradol 30mg IV @ 1006 Tylenol 1,000mg PO @ 0520 Valium 5mg IV @0517 Valium 2.5mg IV @ 1008 Toradol 15mg IV at 0740 Klonopin 1mg @1527 Valium 5mg PO @1219 Cymbalta 30mg PO @ 1327 Nitro 0.4mg @1327
[2025-02-24] MEDS: clonazePAM (*CRX) 0.5 MG TABLET 1 MG (19:36)
[2025-02-24 20:27] LABS: Ammonia 26 umol/L (9-30); Creatine Kinase 220 U/L (55-170)
[2025-02-24 20:47] LABS: Influenza A QL RT-PCR Negative (Negative); Influenza B QL RT-PCR Negative (Negative); RSV RNA, RT-PCR Negative (Negative); SARS-CoV-2 RNA PCR Negative (Negative)
[2025-02-24] MEDS: HALOPERIDOL LACTATE 5 MG/ML VIAL IV PUSH (21:16)
[2025-02-24] MEDS: MIDAZOLAM HCL (*CRX) 2 MG/2 ML VIAL 5 MG IV PUSH (21:16)
== END 2025-02-25 05:33 ==
PROVIDERS: Emergency Medicine; Emergency Provider Student in an Organized Health Care Education/Training Program; PCP Family Medicine
DX: F15.90 Other stimulant use, unspecified, uncomplicated (principal); R07.9 Chest pain, unspecified; M79.672 Pain in left foot; Z11.52 Encounter for screening for COVID-19; F32.A Depression, unspecified; F17.210 Nicotine dependence, cigarettes, uncomplicated
CPT/HCPCS: 36415; 70450; 71045; 73630; 80053; 80143; 80179; 80307; 81001; 82077; 82140; 82550; 82803; 83605; 84443; 84484; 85025; 87086; 87637; 93005; 96374; 96375; 96376; 99285; A9270; J1171; J1630; J1885; J2250; J3360

== ENCOUNTER 2025-03-25 08:18 | Emergency (ER) | payer OTHER, SELFPAY ==
--- NOTE | ~2025-03-25 | XR_ITS ---
Examination: XR ankle RT min 3V, XR foot RT min 3V Clinical History: Rt. foot/ankle pain and swelling x1 day, NKI. Comparison: Right foot x-rays 02/24/2025 X-rays right ankle and foot 09/01/2024 Technique: 3 views right ankle, 4 views right foot Findings/impression: Right ankle: 1. No fracture or dislocation. 2. Mild soft tissue swelling. Right foot: 1. No acute fracture or abnormality. 2. Calcaneal ORIF, with flattening. Reviewed, dictated and finalized at location [facility]. ER
[2025-03-25 08:18] VITALS: BP 124/76; PULSE 87; RESP 18; TEMP 37.2; O2SAT 100
--- OUTSIDE RECORDS SUMMARY | 2025-03-25 08:23 | XMS_ITS ---
Author Organization Unknown Address [address] [place] [phone] Phone Care Team Providers Care Financial Administrator Name Role Phone ANNABELLA MELISSA Attending Unavailable NO PCP Primary Unavailable Immunization Immunization Date Status Additional Notes Code Code System COVID-19, mRNA, LNP-S, PF, 1 00 mcg/0.5mL dose or 50 mcg/0.25mL dose 07/11/2020 Completed 207 CVX Results URINALYSIS w/Microscopy/C&S if indicated - Collect Date/Time: 05/27/2023 17:02 [facility] ID: [id number] [id number] [place] [address], [phone] LOINC: 29074-9 Test Value Unit Reference Range Code Code System Flag UR SOURCE UNKNOWN 29865-7 LOINC COLOR YELLOW YELLOW 5778-6 LOINC CLARITY SL TURBID CLEAR 85269-1 LOINC A SPEC GRAVITY 1.025 1.000-1.030 5811-5 LOINC PH 6.0 5.0 - 6.5 5803-2 LOINC LEUK EST NEGATIVE NEGATIVE 5799-2 LOINC NITRATE NEGATIVE NEGATIVE PROTEIN NEGATIVE NEGATIVE 5804-0 LOINC GLUCOSE NEGATIVE NEGATIVE 49008-0 LOINC KETONES NEGATIVE NEGATIVE 38401-2 LOINC UROBILINOGEN 0.2 NEGATIVE 5818-0 LOINC BILIRUBIN NEGATIVE NEGATIVE 89005-3 LOINC BLOOD NEGATIVE NEGATIVE 56944-6 LOINC WBC 0-2 0 - 2 61184-3 LOINC RBC 0-2 0 - 2 52929-7 LOINC EPITHELIAL OCCASIONA RARE-FEW 15283-0 LOINC BACTERIA FEW NONE SEEN 91166-5 LOINC MUCUS MANY NONE SEEN 8247-9 LOINC A YEAST NOT PRESENT NOT PRESENT 31524-4 LOINC CASTS SEE BELOW 39774-1 LOINC CRYSTALS NONE SEEN 99866-7 LOINC CULTURE? NO 8251-1 LOINC DIAGNOSIS N/A URINE DRUG SCREEN 12 PANEL R APID - Collect Date/Time: 05/27/2023 17:02 [facility] ID: [id number] [address] [place] [address], [phone] LOINC: Test Value Unit Reference Range Code Code System Flag THC POSITIVE A PCP NEGATIVE COCAINE NEGATIVE 06844-9 LOINC METHAMPHETAMINES POSITIVE A OPIATES NEGATIVE AMPHETAMINES POSITIVE 50858-0 LOINC A BENZO POSITIVE 62315-1 LOINC A TCA NEGATIVE METHADONE NEGATIVE BARBITUATES NEGATIVE OXYCODONE NEGATIVE OD [id number] YLATE-ETOH - Collect Date/Time: 05/27/2023 15:55 [facility] ID: [id number] [address] [place] [address], [phone] LOINC: Test Value Unit Reference Range Code Code System Flag ACETAMINOPHEN < 10 ug/dL L=0 H=10 3298-7 LOINC SALICYLATE < 1 mg/dL L=0 H=5 4024-6 LOINC ALCOHOL < 10.00 mg/dL L=0.00 H=50.00 5643-2 LOINC TSH - Collect Date/Time: 10/2023 15:55 [facility] ID: [id number] [address] [place] [address], [phone] LOINC: 46881-0 Test Value Unit Reference Range Code Code System Flag TSH. 2.240 uIU/L L=0.470 H=4.680 01965-9 LOINC BASIC METABOLIC PANEL - Serafin ect Date/Time: 05/27/2023 15:55 [facility] ID: [id number] [address] [place] [address], [phone] LOINC: 66739-0 Test Value Unit Reference Range Code Code System Flag FASTING UNKNOWN BUN 26 mg/dL L=7 H=20 3094-0 LOINC H CREATININE 1.00 mg/dL L=0.66 H=1.25 2160-0 LOINC GLUCOSE 97 mg/dL L=74 H=106 2345-7 LOINC CALCIUM 9.8 mg/dL L=8.3 H=10.5 93999-3 LOINC SODIUM 139 mmol/L L=132 H=144 2951-2 LOINC POTASSIUM 3.7 mmol/L L=3.5 H=5.1 2823-3 LOINC CHLORIDE 100 mmol/L L=98 H=107 2075-0 LOINC CO2 28.0 mmol/L L=22.0 H=30.0 2028-9 LOINC ANION GAP 15 L=10 H=20 24652-6 LOINC BUN/CREAT 26.0 3097-3 LOINC AGE 37 96837-0 LOINC eGFR NON-AFR 89 ml/min eGFR AFR AMER 108 ml/min CBC W/ DIFF - Collect Date/T alhaji: 05/27/2023 15:55 [facility] ID: [id number] [address] [place], [place], [phone] LOINC: 08285-2 Test Value Unit Reference Range Code Code System Flag WBC 9.0 10^3uL L=4.8 H=10.8 RBC 4.87 10^6uL L=4.60 H=6.20 HEMOGLOBIN 14.7 g/dL L=14.0 H=18.0 718-7 LOINC HEMATOCRIT 43.6 VOL% L=42.0 H=52.0 4544-3 LOINC MCV 89.5 fL L=80.0 H=94.0 MCH 30.2 pg L=27.0 H=32.0 MCHC 33.7 g/dL L=32.0 H=36.0 PLATELETS 359 10^3uL L=100 H=400 25581-6 LOINC RDW 12.6 % L=11.7 H=15.5 %GRAN 66.2 % L=40.0 H=70.0 24388-1 LOINC %LYMPH 23.0 % L=20.0 H=45.0 736-9 LOINC %MONO 8.4 % L=2.0 H=10.0 90752-6 LOINC %EOS 1.3 % L=0.0 H=6.0 713-8 LOINC %BASO 0.8 % L=0.0 H=3.0 706-2 LOINC #NEUT 5.9 10^3uL L=1.9 H=7.6 36773-8 LOINC #LYMPH 2.1 10^3uL L=0.9 H=4.9 71110-5 LOINC #MONO 0.8 10^3uL L=0.1 H=0.9 60352-9 LOINC #EOS 0.1 10^3uL L=0.0 H=0.6 712-0 LOINC #BASO 0.07 10^3uL L=0.00 H=0.10 35725-3 LOINC #IM GRANS 0.0 10^3uL L=0.0 H=7.0 63006-0 LOINC %IM GRANS 0.3 % L=0.0 H=5.0 11437-2 LOINC %NRB 0.0 L=0.0 H=0.2 99888-7 LOINC #NRB 0.000 L=0.000 H=0.012 16150-6 LOINC MANUAL DIFF NOT INDICATED RBC MORPH NOT INDICATED LIVER PROFILE - Collect Date /Time: 05/27/2023 15:55 [facility] ID: [id number] [address] [place], [place], [phone] LOINC: 66069-2 Test Value Unit Reference Range Code Code [...] MAGNESIUM - Collect Date/Roland e: 05/27/2023 15:55 [facility] ID: [id number] [address] [place] [address], [phone] LOINC: 29433-4 Test Value Unit Reference Range Code Code System Flag MAGNESIUM 2.3 mg/dL L=1.6 H=2.3 34702-1 LOINC SARS COV2 PCR - Collect Lawrence e/Time: 05/27/2023 15:46 [facility] ID: [id number] [address] [place] [address], [phone] LOINC: 26218-9 Test Value Unit Reference Range Code Code System Flag SARS COV2 PCR NEGATIVE 99943-1 LOINC SENT TO C RN? YES A Social History Type Status Start Date End Date Code Code Syst em Smoking History Current every day smoker 434993282 SNOMED CT Sex Male Hospital Discharge Instructions [...] Co de Code System CODEINE Vomiting (SNOMED-CT: 728431325), NAUSEA (SNOMED-CT: null), VOMITING (SNOMED-CT: null) Active 2670 RxNorm TORADOL Vomiting (SNOMED-CT: 246355608), NAUSEA (SNOMED-CT: null), VOMITING (SNOMED-CT: null) Active 92010 RxNorm Plan of Treatment No Data Found Encounters Encounter Diagnosis Start Date Code Code Sys tem Low self-esteem 05/27/2023 SNOMED-CT Personal Care Team Section
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
[2025-03-25] MEDS: KETOROLAC (*BKC) 60 MG/2 ML VIAL IM (08:52)
[2025-03-25] MEDS: ALPRAZolam (*CRX) 0.5 MG TABLET PO (08:53)
[2025-03-25] MEDS: TETANUS,DIPHTHERIA,AC PERTUSSIS ADULT 0.5 ML (ADACEL) IM (08:55)
[2025-03-25] MEDS: SILVER SULFADIAZINE 1% CR 50 GM JAR (*BKC) 1 APPLIC TOPICAL (08:57)
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
[2025-03-25 09:20] VITALS: BP 119/72; PULSE 85; RESP 16; TEMP 37.2; O2SAT 99
== END 2025-03-25 09:20 | disposition home or self-care (01) ==
PROVIDERS: Emergency Provider Emergency Medicine; PCP Family Medicine
DX: T23.152A Burn of first degree of left palm, initial encounter (principal); T31.0 Burns involving less than 10% of body surface; X08.8XXA Exposure to other specified smoke, fire and flames, initial encounter; Z23 Encounter for immunization
CPT/HCPCS: 16000; 73610; 73630; 90471; 90715; 96372; 99283; A9270; J1885